=== PATIENT | male | born 1950 | race African-American/Black ===

== ENCOUNTER 2019-10-13 20:06 | Emergency (ER) | payer OTHER ==
[~2019-10-13] VITALS: Ht 154.9 cm; Wt 79.4 kg
[2019-10-13 21:20] LABS: HEMATOCRIT 38.4 % (42.0-52.0); HEMOGLOBIN 13.1 gm/dL (14.0-18.0); MCH 27.9 pg (26.0-34.0); MCHC 34.2 g/dL (28.0-37.0); MCV 81.7 fL (80.0-100.0); PLATELET COUNT 155 thou/uL (150-400); RBC 4.71 mil/uL (4.50-6.00); RDW 13.5 % (10.5-14.5)
[2019-10-13 21:32] LABS: CALCIUM 8.3 mg/dL (8.5-10.1); CREATININE 1.2 mg/dL (0.7-1.3); POTASSIUM 3.7 mmol/L (3.5-5.1)
[2019-10-13 21:38] LABS: ALBUMIN 3.2 g/dL (3.4-5.0); TOTAL BILIRUBIN 0.4 mg/dL (0.2-1.0); TOTAL PROTEIN 7.2 g/dL (6.4-8.2)
[2019-10-13 21:55] LABS: ABSOLUTE NEUTROPHILS 2.9 thou/uL (1.4-8.2)
[2019-10-13 21:56] LABS: ANISOCYTOSIS 1+; LARGE PLATELETS OCCASIONAL
[2019-10-14 00:09] LABS: URINE BILIRUBIN NEGATIVE (Negative); URINE BLOOD 1+ (Negative); URINE CLARITY CLEAR; URINE COLOR YELLOW; URINE GLUCOSE-RANDOM* NEGATIVE (Negative); URINE KETONES NEGATIVE (Negative); URINE LEUKOCYTES-REFLEX NEGATIVE (Negative); URINE NITRITE-REFLEX NEGATIVE (Negative); URINE PROTEIN (DIPSTICK) NEGATIVE (Negative); URINE UROBILINOGEN 0.2 E.U./dl (0.2-1.0)
[2019-10-14 00:17] LABS: MUCUS 0-3 Light strn/LPF (None Seen); SQUAMOUS None Seen /LPF (0-3); TRANSITIONAL EPITHEL CELL 0-3 Few /LPF (None Seen)
[2019-10-14 00:18] LABS: BACTERIA-REFLEX None Seen /HPF (None Seen); CELLULAR CASTS 0-3 Few /LPF (None Seen); CRYSTALS None Seen /LPF (None Seen); URINE RBC 0-2 Rare /HPF (0-2); URINE WBC-REFLEX None Seen /HPF (0-5)
[2019-10-14 01:40] VITALS: BP 116/76
== END 2019-10-14 01:41 | disposition home or self-care (01) ==
LOC: EDBD 20:06 → ER 20:06
PROVIDERS: Emergency Medicine
DX: U07.1 COVID-19 (principal); C61 Malignant neoplasm of prostate; Z88.0 Allergy status to penicillin

== ENCOUNTER 2019-10-14 12:30 | Inpatient (IN) | payer MEDICAID ==
[~2019-10-14] VITALS: Ht 175.3 cm; Wt 78.6 kg
[2019-10-14 12:41] VITALS: BP 122/70
[2019-10-14 13:42] LABS: HEMATOCRIT 38.2 % (42.0-52.0); HEMOGLOBIN 12.8 gm/dL (14.0-18.0); MCH 27.5 pg (26.0-34.0); MCHC 33.5 g/dL (28.0-37.0); MCV 82.1 fL (80.0-100.0); PLATELET COUNT 145 thou/uL (150-400); RBC 4.66 mil/uL (4.50-6.00); RDW 13.3 % (10.5-14.5); WBC 3.8 thou/uL (4.0-11.0)
[2019-10-14 14:14] LABS: ABSOLUTE NEUTROPHILS 1.9 thou/uL (1.4-8.2); ATYPICAL LYMPHS 1 %
[2019-10-14 14:15] LABS: ANISOCYTOSIS 1+; LARGE PLATELETS OCCASIONAL
[2019-10-14 14:23] LABS: POTASSIUM 3.8 mmol/L (3.5-5.1)
[2019-10-14 14:24] LABS: CALCIUM 8.3 mg/dL (8.5-10.1); CREATININE 1.3 mg/dL (0.7-1.3); TOTAL BILIRUBIN 0.4 mg/dL (0.2-1.0)
[2019-10-14 14:25] LABS: ALBUMIN 3.1 g/dL (3.4-5.0); TOTAL PROTEIN 7.1 g/dL (6.4-8.2)
[2019-10-14 17:54] VITALS: BP 103/78
[2019-10-14 17:57] LABS: D-DIMER 0.21 ug/mLFEU (0.19-0.50); FIBRINOGEN 444.1 mg/dL (210-360)
[2019-10-14 17:59] VITALS: BP 103/78
[2019-10-14 18:20] VITALS: BP 122/67
[2019-10-15 04:15] VITALS: BP 106/63
[2019-10-15 06:14] LABS: HEMATOCRIT 40.1 % (42.0-52.0); HEMOGLOBIN 13.1 gm/dL (14.0-18.0); MCH 27.6 pg (26.0-34.0); MCHC 32.6 g/dL (28.0-37.0); MCV 84.5 fL (80.0-100.0); RBC 4.74 mil/uL (4.50-6.00); RDW 13.9 % (10.5-14.5); WBC 3.1 thou/uL (4.0-11.0)
[2019-10-15 06:20] LABS: CREATININE 1.2 mg/dL (0.7-1.3); POTASSIUM 3.9 mmol/L (3.5-5.1)
--- NOTE | 2019-10-15 07:40 | EKG ---
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: MELANY : 1950 Requested By: Ana Rick Order Number: [id number] MD: Ki Montero Measurements Intervals [place] Rate: 68 P: 59 RI: 127 QRS: -13 QRSD: 110 T: 254 QT: 385 QTc: 410 Interpretive Statements Sinus rhythm with atrial premature complexes RSR' in V1 or V2, right VCD Abnrm T, consider ischemia, anterolateral lds No previous ECG available for comparison Electronically Signed On 10-15-2019 7:40:16 CDT by Ki Montero [email or web address] <ELECTRONICALLY SIGNED> By: Ki Montero MD, [facility] 10/15/19 0740 [id number] Ki Montero MD, [facility] /EPI
[2019-10-15 08:06] VITALS: BP 105/64
--- NOTE | 2019-10-15 16:03 | NUR ---
INITIAL ASSESSMENT: CHELSEA reviewed chart and spoke with nursing and attending physician. Pt was admitted from home due to pneumonia/dyspnea. Pt placed in Enhanced Isolation to r/o COVID -19. Pt is febrile and is on IV abx. CHELSEA spoke with pt via phone. Introduced role of CHELSEA. Pt is alert/orientated. States he lives at home with his family. Prior to admission, pt was independent with ADLS. No use of DME. Pt states he has not had HH services or been to post-acute care. Pt does not have a PCP. Pt states he has Medicare. CHELSEA confirmed pt's social security number on face sheet. CHELSEA updated UR RN. CHELSEA is following to assist as needed with discharge planning.
--- NOTE | 2019-10-15 18:37 | NUR ---
ASSUMED PATIENT CARE AT 0700. A/0 X4. AFEBRILE. 2ND COVID TEST POSITIVE. AMBULATED IN ROOM. NO SOB. SLOWLY TOWARDS POC GOALS.
[2019-10-15 19:53] VITALS: BP 112/63
--- NOTE | 2019-10-15 20:16 | NUR ---
PT RESTING IN BED WATCHING TV AND TALKING ON PHONE. PT DENIES SOA OR DISCOMFORT. PT HAS TOWEL OVER HIS HEAD. GOOD EYE CONTACT, BLUNTED AFFECT. LUNGS DIMINISHED. PT REMAINS INDEPENDENT WITH ADLS. PT REQUESTED SNACK AND WILL BE PROVIDED.
--- NOTE | 2019-10-16 05:03 | NUR ---
AM O2 SAT R/A 85% PT REPORTED SOA. O2 2L 88, 3L 91. TEMP ELEVATED AND PRN TYLENOL PROVIDED. NURSES' ASSOCIATION COUNSELOR, RESPIRATORY THERAPIST AND CHARGE NURSE UPDATED.
[2019-10-16 05:04] VITALS: BP 107/66
[2019-10-16 08:12] LABS: HEMOGLOBIN 11.9 gm/dL (14.0-18.0); MCH 27.3 pg (26.0-34.0); MCV 82.9 fL (80.0-100.0); RBC 4.34 mil/uL (4.50-6.00); RDW 13.7 % (10.5-14.5); WBC 9.4 thou/uL (4.0-11.0)
[2019-10-16 08:19] LABS: CALCIUM 8.2 mg/dL (8.5-10.1); POTASSIUM 3.7 mmol/L (3.5-5.1)
[2019-10-16 08:41] LABS: D-DIMER 0.19 ug/mLFEU (0.19-0.50)
[2019-10-16 11:09] LABS: ALBUMIN 2.6 g/dL (3.4-5.0); DIRECT BILIRUBIN < 0.1 mg/dL (<0.1-0.2); SGOT 29 U/L (15-37); SGPT 19 U/L (30-65); TOTAL BILIRUBIN 0.3 mg/dL (0.2-1.0); TOTAL PROTEIN 6.4 g/dL (6.4-8.2)
--- NOTE | 2019-10-16 14:13 | NUR ---
CHELSEA reviewed chart and spoke with nursing. Pt remains in Enhanced Isolation due to COVID-19. Pt is febrile and requiring O2. ID consult ordered. Patient Access is unable to verify pt's Medicaid with listed social security number. Pt not answering his phone in his room. CHELSEA is following to assist as needed with discharge planning.
--- NOTE | 2019-10-16 17:04 | NUR ---
08:00-ASSESSED PT. HE IS FAIRLY LETHARGIC OVERALL, FLAT AFFECT. RESPONDS APPROPRIATLEY. ON 3L NC AND SATURATIONS ARE RUNNING 92-94%, NON -LABORED BREATHING. DENIES ANY CHEST PAIN, NO SOB. IV HAS INFILTRATED SO WILL GET A NEW ONE TODAY FOR MEDICATIONS TO BE GIVEN IV.
--- NOTE | 2019-10-16 17:08 | NUR ---
10:00 22 GUAGE INSERTED INTO RIGHT ANTECUBATAL PT. SAID HE IS A "HARD STICK AND THEY HAVE TROUBLE GETTING IV'S ON HIM". BLOOD RETURN OBTAINED AND FLUSHES EASILY. MULTIPLE IV MEDICATIONS GIVEN TODAY AHEAD. APPEARS TO HAVE "CHILLS"- BUT ORAL TEMP IS STILL ONLY 99.7
--- NOTE | 2019-10-16 17:11 | NUR ---
12:30- CHANGED OUT ALL BED LINENS, PT. WASHED UP ON HIS OWN IN THE BATHROOM. HE GOT BACK TO BED AND WAS STRUGGLING FOR AIR, PLACED HIM VALENTE BACK ON NASAL CANNULA AND HIS SATURATIONS IMPROVED UP TO 94% ONCE HE SETTLED DOWN AND CALMED HIS BREATHING RATE DOWN.
--- NOTE | 2019-10-16 17:13 | NUR ---
15:30- PT. RESTING EYES CLOSED, STATED NAUSEA POST ZOFRAN HAS IMPROVED " A LITTLE BIT NOW". HAS C/O ABDOMEN PAIN AND NAUSEA ALL DAY TODAY ON AND OFF HIS PREDOMINANT SYMPTOM OVERALL. HAD SMALL AMOUNT OF DIARRHEA POST ANTIBIOTOCS.
--- NOTE | 2019-10-16 17:14 | NUR ---
IV INFUSION'S CONTINUE THROUGHOUT THE DAY. RESTING WITH HIS EYES CLOSED, TOLD ME HE FELT "COLD"- AND ROOM FEELS VERY WARM AT 80 DEGRESS TO ME. DENIES ANY SOB. CALL LIGHT WITHIN REACH, WILL CONTINUE TO MONITOR CLOSELY.
--- NOTE | 2019-10-16 19:53 | NUR ---
PT RESTING IN BED. O2 ROOM AIR SAT 77%. PT EDUCATED HE NEEDS TO KEEP O2 ON, 3L NC RETURNED AND O2 SAT ONLY UP TO 88%. 4L PT SAT 91%. PT EDUCATED AGAIN FOR NEED TO LEAVE O2 ON. TEMP 99.2 AND PT PROVIDED PRN TYLENOL. PT REPORTED FEELING TIRED AND NOT SLEEPING WELL. PT ASKED FOR FOOD AND TALKING ON PHONE WITH HIS SISTER. LUNGS EXP GRUNT. RESPIRATORY AND PROVIDER UPDATED. CHARGE NURSE UPDATED.
[2019-10-16 21:01] LABS: URINE BILIRUBIN NEGATIVE (Negative); URINE BLOOD 1+ (Negative); URINE CLARITY CLEAR; URINE COLOR YELLOW; URINE GLUCOSE-RANDOM* NEGATIVE (Negative); URINE KETONES NEGATIVE (Negative); URINE LEUKOCYTES-REFLEX NEGATIVE (Negative); URINE NITRITE-REFLEX NEGATIVE (Negative); URINE PROTEIN (DIPSTICK) 1+ (Negative); URINE UROBILINOGEN 0.2 E.U./dl (0.2-1.0)
[2019-10-16 21:30] VITALS: BP 114/59
[2019-10-16 21:50] LABS: BACTERIA-REFLEX 1-9 Few /HPF (None Seen); CASTS None Seen /LPF (None Seen); CRYSTALS None Seen /LPF (None Seen); MUCUS 0-3 Light strn/LPF (None Seen); SQUAMOUS 0-3 Few /LPF (0-3); URINE RBC 3-10 Few /HPF (0-2); URINE WBC-REFLEX 0-5 Rare /HPF (0-5)
[2019-10-16 21:52] LABS: BE(vivo) -0.1 mmol/L (-2 to +3); HCO3 23.7 mmol/L (22.0-26.0); PCO2 35.8 mmHg (35.0-45.0); PO2 61.8 mmHg (80.0-100.0); pH 7.439 (7.360-7.450); sO2 92.6 % (92.0-98.0)
--- NOTE | 2019-10-16 22:01 | NUR ---
TALKED WITH ID REGARDING PTS CHANGE IN CONDITION. TALKED WITH PT ABOUT CONVALESCENT PLASMA AND ORDERED TYPE AND SCREEN. 93% ON 6L. CHARGE NURSE, TEACHING DIETITIAN AND HAND SALTER PROVIDER UPDATED RE CONVERSATION WITH ID DR. DAHL AND RESPIRATORY COMMUNICATED RE HIGH FLOW O2 CANNULA. RESPIRATORY DID OBTAIN ABG AFTER BEING UPDATED ON NURSING SUPERVISORS CONVERSATION WITH FLOOR NURSE. PT HAS INFORMATION HAND OUT ON PLASMA TREATMENT AND IS REVIEWING. BLOOD TYPE WILL BE CALLED TO ID
--- NOTE | 2019-10-16 22:28 | NUR ---
PT MORE ALERT GOOD EYE CONTACT WHEN INTERACTING WITH STAFF AND SMILING. PT VERBALIZED FEELING BETTER WITH INCREASE IN O2 PER NC. BED ALARM ON.
--- NOTE | 2019-10-16 23:18 | NUR ---
PT BLOOD TYPE CALLED TO ID PER HIS REQUEST.
[2019-10-17] VITALS (15 sets, daily range): BP systolic 100–126; BP diastolic 54–67
[2019-10-17 06:02] LABS: HEMATOCRIT 36.4 % (42.0-52.0); HEMOGLOBIN 11.9 gm/dL (14.0-18.0); MCHC 32.8 g/dL (28.0-37.0); MCV 82.4 fL (80.0-100.0); RBC 4.41 mil/uL (4.50-6.00); RDW 13.8 % (10.5-14.5); WBC 10.1 thou/uL (4.0-11.0)
--- NOTE | 2019-10-17 10:04 | NUR ---
ASSUMED CARE AT 0700. PT SLEEPING, NO COMPLAINTS. NO PAIN. VSS, 6L O2 HIGH FLOW NC SATING 87-89%. NO INCREASED WORK OF BREATHING, LUNG SOUNDS DIMINISHED. POOR PO DUE TO DYSPNEA/WEAKNESS. PIV WITHOUT ISSUES. FALL PRECAUTIONS IN PLACE AND URINAL AND BSC AT BEDSIDE. EDUCATED PT ON CALLING WHEN NEEDS ARISE. CALL LIGHT IN PLACE 0915- PT UP TO BSC. AFTER BACK TO BED, O2 SATS 86% AND RR 24-28. AFTER 10 MIN OF RECOVERING, STILL SATS 86% AND INCREASED WORK OF BREATHING. INCREASE O2 TO 10L. NOTIFY , ORDERS RECIEVED, WILL CONTINUE TO MONITOR
[2019-10-17 11:19] LABS: ALBUMIN 2.4 g/dL (3.4-5.0); ANION GAP 6 mmol/L (7-16); BUN 16 mg/dL (7-18); CALCIUM 8.3 mg/dL (8.5-10.1); CHLORIDE 104 mmol/L (98-107); CO2 28 mmol/L (21-32); CREATININE 0.9 mg/dL (0.7-1.3); DIRECT BILIRUBIN < 0.1 mg/dL (<0.1-0.2); GLUCOSE 141 mg/dL (74-106); SGOT 28 U/L (15-37); SGPT 20 U/L (30-65); SODIUM 138 mmol/L (136-145); TOTAL BILIRUBIN 0.3 mg/dL (0.2-1.0); TOTAL PROTEIN 6.3 g/dL (6.4-8.2)
[2019-10-17 12:40] LABS: HCO3 24.7 mmol/L (22.0-26.0); PCO2 36.4 mmHg (35.0-45.0); PO2 57.3 mmHg (80.0-100.0); pH 7.449 (7.360-7.450); sO2 91.2 % (92.0-98.0)
--- NOTE | 2019-10-17 12:55 | NUR ---
ARRIVED IN ICU FROM 3W AROUND NOON ACCOMPANIED BY RN AND TECH. ABLE TO AMBULATE FEW STEPS TO THE BED. ALERT AND ORIENTED AND DENIES PAIN. ON THE MONITOR IRREGULAR HEART BEAT AND TACHYPNIC. ON 10L HF CANNULA AND SATS AROUND 90-91%. PER DR JOHNSON PATIENT MAY BE PLACED ON BIPAP IF NEEDED. SCDs PLACED ON BLE AND URINAL PROVIDED. ON VEGETERIAN DIET AND TOLERATING WELL. DENIES ANY CONCERNS AT THIS TIME BUT WOULD LIKE A SOCIAL MEDIA DESIGNER FOR HIS CELL PHONE, ADVICED TO CALL FAMILY MEMBER TO DROP IT OFF AT THE ED ENTRANCE. WILL CONTINUE TO MONITOR CLOSELY.
--- NOTE | 2019-10-17 15:58 | NUR ---
SW reviewed chart and spoke with nursing. Pt remains in Enhanced Isolation due to COVID-19. Pt had change in status and requiring 10L of O2. Pt transferred to ICU earlier today. No weekend discharge planning. Med Assist is working to see if pt has active Medicare coverage. CHELSEA is following to assist as needed with discharge planning.
--- NOTE | 2019-10-17 16:44 | NUR ---
PATIENT GOT UP TO THE BATHROOM WITH STANDBY ASSISTANCE, WHEN HE GOT BACK IN BED HIS O2 SATS DROPPED TO 83% AND WASN'T ABLE TO RECOVER QUICKLY SO RT WAS NOTIFIED AND PATIENT PLACED ON OPTIFLOW.
--- NOTE | 2019-10-17 18:10 | NUR ---
PATIENT TOLERATING OPTIFLOW WELL AND O2 SATS UP TO 95%
[2019-10-18] VITALS (22 sets, daily range): BP systolic 97–136; BP diastolic 61–79
[2019-10-18 04:59] LABS: HEMOGLOBIN 11.9 gm/dL (14.0-18.0); MCH 26.9 pg (26.0-34.0); MCHC 32.2 g/dL (28.0-37.0); MCV 83.4 fL (80.0-100.0); RBC 4.44 mil/uL (4.50-6.00); RDW 13.8 % (10.5-14.5); WBC 9.5 thou/uL (4.0-11.0)
[2019-10-18 05:09] LABS: BE(vivo) 0.1 mmol/L (-2 to +3); HCO3 24.1 mmol/L (22.0-26.0); PCO2 37.1 mmHg (35.0-45.0); pH 7.431 (7.360-7.450); sO2 93.1 % (92.0-98.0)
[2019-10-18 05:10] LABS: CREATININE 0.9 mg/dL (0.7-1.3)
[2019-10-18 14:07] LABS: BE(vivo) 1.6 mmol/L (-2 to +3); HCO3 23.4 mmol/L (22.0-26.0); PCO2 28.6 mmHg (35.0-45.0); sO2 99.5 % (92.0-98.0)
--- NOTE | 2019-10-18 16:27 | NUR ---
VAT CONSULTED FOR A CL FOR THIS PT IN ICU, COVID+. 5FRTL PLACED IN RT IJ, TIP AT THE CAJ, PLEASE SEE NI FOR DETAILS
--- NOTE | 2019-10-18 19:29 | NUR ---
PT ALERT AND ORIENTED TIMES FOUR THE MORNING. VSS, HIGH FLOW O2 AT 65%. PT DENIES PAIN. TOLERATES MEDS AND BREAKFAST. VOIDS PER URINAL.
[2019-10-19] VITALS (28 sets, daily range): BP systolic 100–145; BP diastolic 64–85
[2019-10-19 04:29] LABS: BE(vivo) -2.2 mmol/L (-2 to +3); HCO3 22.3 mmol/L (22.0-26.0); PCO2 37.1 mmHg (35.0-45.0); PO2 77.3 mmHg (80.0-100.0); pH 7.396 (7.360-7.450); sO2 95.5 % (92.0-98.0)
[2019-10-19 05:45] LABS: HEMATOCRIT 38.9 % (42.0-52.0); HEMOGLOBIN 12.5 gm/dL (14.0-18.0); MCH 26.8 pg (26.0-34.0); MCHC 32.1 g/dL (28.0-37.0); MCV 83.5 fL (80.0-100.0); RBC 4.66 mil/uL (4.50-6.00); RDW 13.9 % (10.5-14.5)
[2019-10-19 05:58] LABS: CALCIUM 7.7 mg/dL (8.5-10.1); CREATININE 0.8 mg/dL (0.7-1.3); POTASSIUM 3.8 mmol/L (3.5-5.1)
--- NOTE | 2019-10-19 16:26 | NUR ---
PT WAS PRONED AT 1430 WITH HELP FROM 4 NURSES AND 1 RT. O2 SATS BEFORE PRONING WERE 95% ON 40% FIO2 VENTED AND NOW IS 98% ON 40% FIO2 VENTED. RT HAS DECREASED PEEP FROM [address] ORDER[address] PRIOR TO PRONING PT WAS BEING TURNED Q2 HOURS. SKIN INTACT. PT REMAINS SEDATED BUT ON SEDATION VACATION PT DOES OPEN EYES TO COMMAND AND SQUEEZES HANDS. PT HAS NEW ORDER TO START TUBE FEEDING. FEEDING WILL START ONCE PT IS NO LONGER PRONED. HR REMAINS LOW 40'S-50'S.
--- NOTE | 2019-10-19 17:27 | NUR ---
PT'S DAUGHTER BEAU CALLED AND RN GAVE PT UPDATE TO HER.
--- NOTE | 2019-10-19 21:40 | NUR ---
SPOKE WITH SUKHDEV REGARDING PATIENTS CENTRAL LINE CODITION. THE LINE WAS SOAKED IN RED DRAINAHE AT FIRST ENCOUNTER WITH PATIENT THIS SHIFT. AMOUNT OF RED DRAINAGE WAS MORE THAN EXPECTED UNDER HIM. CENTRAL LINE TRIPLE LUMEN FLUSHES AND DRAWS BACK BLOOD. IT MAY BE PULLED BACK MORE THAN ORIGIANLLY PLACED. I HAVE SALINE LOCKED IT OFF AND HOLDING OFF ON USING IT AT THIS TIME. RECIEVED THE OK TO HOLD OFF ON EVALUATING HIS LINE PLACEMENT IN THE MORNING WITH HIS MORNING CHEST XRAY. I SUGGESTED COAG STUDY TO BE DRAWN AND THE ORDERS FOR THIS WILL BE PLACED IF SUKHDEV SEES A NEED. SHE IS EVALUATING HIS CHART.
--- NOTE | 2019-10-19 22:34 | NUR ---
CENTRAL LINE AT THIS TIME NO MORE DRAINAGE. SALINE LOCKED OFF. NO OTHER RED DRAINAGE NOTED FROM ANY OTHER AREA OF BODY.
[2019-10-20] VITALS (47 sets, daily range): BP systolic 87–153; BP diastolic 54–89
[2019-10-20 06:11] LABS: INR 2.1; PROTIME 21.4 Seconds (9.3-11.4)
[2019-10-20 06:24] LABS: D-DIMER 0.38 ug/mLFEU (0.19-0.50)
[2019-10-20 06:28] LABS: CALCIUM 7.5 mg/dL (8.5-10.1); CREATININE 0.8 mg/dL (0.7-1.3); POTASSIUM 3.5 mmol/L (3.5-5.1)
--- NOTE | 2019-10-20 06:34 | NUR ---
CENTRAL LINE CONTINUES TO HAVE RED DRAINAGE THIS MORNING. HELD PRESSURE AND REDRESSED. NO SIGNS OF PAIN. BLOD PRESSURE STABLE. CAREPLAN REVIEWED.
--- NOTE | 2019-10-20 09:12 | NUR ---
RD TUBE FEEDING RECOMMENDATIONS: 1) REC changing to Vital AF 1.2 formula in vented pt to reduce fiber load and significantly lower CHO intake given BG elevations > 260 mg/dl on steroids. Vital AF 1.2 provides 105 g fewer CHO per every 1 L. Goal Rate on Vital AF 1.2 if proned ~4 hrs/day = 80 ml/hr. Goal Rate if TFs off 8+ hrs/day for proning = at least 90 ml/hr. 2) If Jevity 1.5 desired EN formula to continue, REC goal rate of 70 ml/hr if TFs off for 4 hrs/day for proning vs 85 ml/hr goal rate if proned 8 hrs/day. 3) REC standard water flushes of 30 ml q 4 hrs, 30 ml before/after meds while IVFs continue.
[2019-10-20 09:57] LABS: ALBUMIN 1.9 g/dL (3.4-5.0); DIRECT BILIRUBIN < 0.1 mg/dL (<0.1-0.2); SGOT 24 U/L (15-37); SGPT 27 U/L (30-65); TOTAL BILIRUBIN 0.4 mg/dL (0.2-1.0); TOTAL PROTEIN 5.3 g/dL (6.4-8.2)
--- NOTE | 2019-10-20 11:30 | NUR ---
IV therapist here to insert central line. Telephone consent was obtained from pt's daughter.
--- NOTE | 2019-10-20 15:17 | NUR ---
CONSULTED TO REPLACE THE RIGHT IJ CENTRAL LINE THAT WAS ACCIDENTLY REMOVED DURING PRONE POSITION PM. PRESSURE DRESSING NOTED TO THE RIGHT NECK. NEW ORDER AND CONSENT OBTAINED BY THE EMPLOYMENT TRAINING SPECIALIST. A LEFT CENTRAL LINE PLACED PER POLICY AFTER A BEDSIDE TIMEOUT WAS COMPLETED. THE CENTRAL LINE WAS 25CM AND ONLY REACH THE TIP OF THE SVC. A OTW PROCEDURE WAS DONE WITH A 30CM CENTRAL LINE- THE 2ND CHEST XRAY CONFIRMED LINE IN GOOD POSITION FOR USE
--- NOTE | 2019-10-20 16:03 | NUR ---
Right IJ site (from previous central line) continues to ooze blood. Pressure has been applied intermittently today followed by pressure dressings but site continues to have steady ooze. Dr Loredo here approximately [address] Clark also paged and informed. Order received to apply Surgicel to get hemostasis. Call placed to surgery and member of OR Team brought over a pkg of Surgicel. Small piece applied to the left jugular site and a pressure dressing placed. Pt remains hypothermic despite heating blanket applied this morning arond 1030.
--- NOTE | 2019-10-20 18:40 | NUR ---
New pressure drsg applied to right IJ site. New strip of Surgicel also applied. Continues to have slow ooze. Tube feedings initiated today following KUB for placement of tube. Maintained in COVID precautions. Report given to RN assuming care. Daughter called back for status update.
--- NOTE | 2019-10-20 20:00 | NUR ---
Daughter requesting to have pt's sister added to the contact list. Sister is Jerri Maddox -[phone].
[2019-10-21] VITALS (56 sets, daily range): BP systolic 72–128; BP diastolic 38–77
--- NOTE | 2019-10-21 00:55 | NUR ---
RT SITE WHERE THE IJ WAS REMOVED ON 10/19 CONTINUES TO OOZE RED DRAINAGE.
--- NOTE | 2019-10-21 02:10 | NUR ---
pt blood pressure low at this time. 72/38, he is very sedated, unable to open eyes wide enough for him to view pupils. turned off the versed for now.
[2019-10-21 04:39] LABS: BE(vivo) 1.1 mmol/L (-2 to +3); HCO3 24.4 mmol/L (22.0-26.0); PCO2 34.5 mmHg (35.0-45.0); PO2 57.6 mmHg (80.0-100.0); pH 7.468 (7.360-7.450); sO2 91.8 % (92.0-98.0)
[2019-10-21 06:04] LABS: HEMATOCRIT 35.8 % (42.0-52.0); HEMOGLOBIN 11.6 gm/dL (14.0-18.0); MCH 26.8 pg (26.0-34.0); MCHC 32.4 g/dL (28.0-37.0); MCV 82.8 fL (80.0-100.0); PLATELET COUNT 319 thou/uL (150-400); RBC 4.32 mil/uL (4.50-6.00); RDW 13.7 % (10.5-14.5); WBC 9.5 thou/uL (4.0-11.0)
[2019-10-21 06:18] LABS: CALCIUM 7.4 mg/dL (8.5-10.1); CREATININE 0.9 mg/dL (0.7-1.3); POTASSIUM 3.2 mmol/L (3.5-5.1); TOTAL BILIRUBIN 0.3 mg/dL (0.2-1.0); TOTAL PROTEIN 5.4 g/dL (6.4-8.2)
[2019-10-21 12:27] LABS: ABSOLUTE NEUTROPHILS 7.3 thou/uL (1.4-8.2); PLATELET ESTIMATE NORMAL
--- NOTE | 2019-10-21 18:35 | NUR ---
UPDATE GIVEN TO DAUGHTER BEAU, DISCUSSED STABLE VITAL SIGNS-CHEST XRAY WORSENING-INCREASED VENT SETTINGS. ASSURED WILLIAMS HE WAS NOT IN PAIN AND COMFORTABLE POSSIBLE. SHE IS VERY CONCERNED. ALSO SPOKE WITH AGUSTO [id number] WANTED TO ADD ERIKA TO THE LIST BUT DID NOT WANT TO REMOVE SON RYNE. INFORMED DAUGHTER THAT ONLY TWO PEOPLE COULD BE ON THE AUTHORIZED CONTACTS. SHE WAS OKAY WITH POLICY. DRESSING ON RIGHT SIDE NECK CHANGED-COMPLETELY SATURATED WITH DARK BLACK BLOOD. NEW DRESSING C/D/I, NO ISSUES OR CONCERNS.
[2019-10-22] VITALS (37 sets, daily range): BP systolic 94–152; BP diastolic 56–91
--- NOTE | 2019-10-22 09:45 | NUR ---
BEAU, DAUGHTER CALLED TO INQUIRE REGARDING PT STATUS, UPDATED RELATED TO BEING ON VENT, CPAP TRIAL TO WORK TOWARD GETTING OFF VENT IF HE IS ABLE TO TOLERATE, SEDATION MEDS, NUTRITION PER TUBE FEEDING. QUESTIONS ANSWERED TO SATISFACTION.
[2019-10-22 10:23] LABS: HCO3 25.5 mmol/L (22.0-26.0); PCO2 40.2 mmHg (35.0-45.0); PO2 58.4 mmHg (80.0-100.0); sO2 90.9 % (92.0-98.0)
--- NOTE | 2019-10-22 20:09 | NUR ---
PATIENTS CARES WERE ASSUMED AT SHIFT CHANGE ON 10/20. PATIENT WAS ASSESSED AND MEDS WERE PASSED. PATIENTS DRIPPS WERE MAINTAINED. PATIENT WAS TURNED APPROX Q3 HOURS AND PAUSSED FROM 0100 TO 0500 TO PROMOTE BETTER REST.VS RECORED ONE THE HOUR. TOTLE VOLUME OUT 600 PATIENT CERON IS PATENT. HEAD OF BED UP 30 DEGREES.
[2019-10-23] VITALS (36 sets, daily range): BP systolic 92–147; BP diastolic 53–80
[2019-10-23 04:49] LABS: BE(vivo) 1.5 mmol/L (-2 to +3); PCO2 40.6 mmHg (35.0-45.0); PO2 70.4 mmHg (80.0-100.0); pH 7.424 (7.360-7.450); sO2 94.5 % (92.0-98.0)
[2019-10-23 05:15] LABS: HEMATOCRIT 34.2 % (42.0-52.0); HEMOGLOBIN 11.1 gm/dL (14.0-18.0); MCHC 32.5 g/dL (28.0-37.0); MCV 83.2 fL (80.0-100.0); PLATELET COUNT 316 thou/uL (150-400); RBC 4.12 mil/uL (4.50-6.00); RDW 14.4 % (10.5-14.5); WBC 13.8 thou/uL (4.0-11.0)
[2019-10-23 05:56] LABS: CALCIUM 7.8 mg/dL (8.5-10.1); CREATININE 0.8 mg/dL (0.7-1.3); POTASSIUM 3.6 mmol/L (3.5-5.1); TOTAL BILIRUBIN 0.3 mg/dL (0.2-1.0); TOTAL PROTEIN 5.5 g/dL (6.4-8.2)
--- NOTE | 2019-10-23 07:20 | NUR ---
ASSESSMENT DOCUMENTED.PT BEEN RESTING IN NO ACUTE DISTRESS.REMAINS ON VENT AND SEDATED.DOES NOT FOLLOW COMMANDS.ON PROPOFOL AND VERSED,TITRATED TOLERATED.IVF INFUSING.CERON DD LARGE AMOUNT URINE.TOLERATING TUBE FEEDING..ETT AND OGT IN PLACE.NO SIGNIFICANT CHANGES NOTED AT THIS TIME.WILL CONT TO MONITOR PER POC.
[2019-10-23 09:37] LABS: BE(vivo) 1.8 mmol/L (-2 to +3); PCO2 39.2 mmHg (35.0-45.0); PO2 54.9 mmHg (80.0-100.0); pH 7.439 (7.360-7.450); sO2 89.7 % (92.0-98.0)
--- NOTE | 2019-10-23 09:39 | NUR ---
New tube feed recs due to hyperglycemia: change formula to vital AF 1.2 at 60ml/hr. Increase to 70ml/hr if propofol discontinued Triglycerides up to 563, address propofol Start water flushes once IVF are discontinued
--- NOTE | 2019-10-23 10:09 | NUR ---
CPAP TRAIL DONE THIS AM- PATIENT LASTED TO HOURS, SEE POST ABG. CRITICAL PO2. INCREASED FIO2 FROM [address] ABURTO NOTIFIED OF CRITICAL RESULTS. REMAINS SEDATED ON THE VENT. ALL VITAL SIGNS STABLE, AFEBRILE.
[2019-10-23 12:20] LABS: PLATELET ESTIMATE NORMAL
--- NOTE | 2019-10-23 15:25 | NUR ---
unable to visit with pt rt remains on vent with tube feed for nutitional support. lives with his daughter and son. unable to reach his son or daughter via phone. aleja is + for jeff.
--- NOTE | 2019-10-23 18:43 | NUR ---
PROPOFOL GTT DISCONTINUED. ORDERS TO WEEN OF VERSED AND INITIATE FENTANYL AND PRECEDEX GTT. WAITING FOR PHARAMACY TO SEND, WILL HAVE NIGHT RN START GTTS.
[2019-10-24] VITALS (48 sets, daily range): BP systolic 91–163; BP diastolic 54–92
--- NOTE | 2019-10-24 04:06 | NUR ---
ASSUMED CARE 1899. ASSESSMENT DOCUMENTE. PT SEDATED. NOT FOLLOWING COMMANDS BUT PUPILS REACTIVE. PT SEEM COMFORTABLE. PT DOING FINE ON CPAP MAINTAINING SATS >95. NO DISTRESS. PATIENT SWITCHED FROM VERSED GTT TO FENTANYL AND PRECEDEX GTT. FENTANYL CURRENTLY AT 50MCG/HR, PRECEDEX AT 0.4 MCG/HR. WILL CONTINUE TO TITRATE PER PATIENTS COMFORT. NO OTHER CONCERNS. PT PROGRESSING TOWARDS GOAL.
[2019-10-24 05:05] LABS: BE(vivo) -0.3 mmol/L (-2 to +3); HCO3 24.8 mmol/L (22.0-26.0); PCO2 42.2 mmHg (35.0-45.0); PO2 64.1 mmHg (80.0-100.0); pH 7.387 (7.360-7.450); sO2 92.2 % (92.0-98.0)
[2019-10-24 05:21] LABS: HEMOGLOBIN 10.9 gm/dL (14.0-18.0); MCH 26.9 pg (26.0-34.0); MCHC 32.1 g/dL (28.0-37.0); MCV 83.8 fL (80.0-100.0); PLATELET COUNT 309 thou/uL (150-400); RBC 4.05 mil/uL (4.50-6.00); RDW 13.9 % (10.5-14.5)
[2019-10-24 06:48] LABS: CALCIUM 7.7 mg/dL (8.5-10.1); CREATININE 0.8 mg/dL (0.7-1.3); POTASSIUM 3.9 mmol/L (3.5-5.1); TOTAL BILIRUBIN 0.3 mg/dL (0.2-1.0); TOTAL PROTEIN 5.6 g/dL (6.4-8.2)
--- NOTE | 2019-10-24 13:53 | NUR ---
chart review. pt remains on vent and has tube feeding for nutritional support. cpap trials. iv gtts. no anticpated dc through weekend. will cont following as needed for dc needs.
[2019-10-24 14:39] LABS: ABSOLUTE NEUTROPHILS 10.4 thou/uL (1.4-8.2)
[2019-10-24 14:40] LABS: ANISOCYTOSIS 1+; LARGE PLATELETS OCCASIONAL; POLYCHROMASIA OCCASIONAL
--- NOTE | 2019-10-24 18:29 | NUR ---
ASSESSMENTS AND INTERVENTIONS DOCCUMENTED. PATIENT REMIANS INTUBATED AND ON THE VENTILATOR. PATIENT REMAINS ON CPAP MODE THROUGH OUT SHIFT. DR. ABURTO NOT READY TO EXTUBATE BECAUSE NEGATIVE PRESSURE ROOM IS NEEDED. PATIENT IS PROGRESSING TOWARDS GOALS AT THIS TIME EVIDENCE BY REMIANING CPAP MODE THROUGH OUT THE SHIFT.
[2019-10-25] VITALS (46 sets, daily range): BP systolic 90–158; BP diastolic 54–90
[2019-10-25 05:03] LABS: BE(vivo) 4.3 mmol/L (-2 to +3); HCO3 29.2 mmol/L (22.0-26.0); PCO2 45.1 mmHg (35.0-45.0); PO2 63.4 mmHg (80.0-100.0); pH 7.429 (7.360-7.450); sO2 92.7 % (92.0-98.0)
[2019-10-25 05:38] LABS: HEMATOCRIT 33.6 % (42.0-52.0); MCH 27.2 pg (26.0-34.0); MCHC 32.6 g/dL (28.0-37.0); MCV 83.3 fL (80.0-100.0); PLATELET COUNT 276 thou/uL (150-400); RBC 4.04 mil/uL (4.50-6.00); RDW 13.8 % (10.5-14.5); WBC 13.7 thou/uL (4.0-11.0)
--- NOTE | 2019-10-25 08:29 | NUR ---
ASSUMED PT CARE AT THE CHANGE OF SHIFT, PT IS MILDLY SEDATED AND CAN FOLLOW COMMANDS, SR/SA ON THE MONITOR, REMAINS ON RESTRAINS, ASESSMENTS CHARTED, VERSED GIVEN PRN, MEDICATION GIVEN ORDERED, REMAINS ON TUBE FEEDING, NO RESIDUAL, ABDOMEN DISTENDED WITH HYPOACTIVE BOWEL SOUNDS, REMAINED STABLE OVERNIGHT, PASSED ON REPOART TO DAY NURSE
[2019-10-25 11:37] LABS: ABSOLUTE NEUTROPHILS 12.5 thou/uL (1.4-8.2)
--- NOTE | 2019-10-25 18:12 | NUR ---
RECEIVED PT'S CARE AROUND 724; PT. ON BED; ENTUBATED; RESTLESS; TRYING TO REACH ET WHILE RECEIVING REPORT; PRN VERSET GIVEN BY NIGHT NURSE; DURING AM ASSESSMENT PT. ON DEEP SEDATION; REACT TO PAIN; AM MEDICATIONS GIVEN; FEEDING RUNNING AT 60 ML/H TOGETHER WITH FLUIDS AT 125 ML/H; DR. ABURTO NOTIFIED; ORDERS RECEIVED; RESIDUAL 3 ML; AROUND NOON PT. LIGHT SEDATED; HAD SMALL BM; SOFT; FORM; REPLACED INSULIN; DURING THE AFTERNOON RESTLESS; TRYING TO REACH CERON & ET; RE-ORIENTED; REMAINED OF THE NEED OF ET; PRN VERSET GIVEN; RE-ASSESSMENT PT. ON LIGHT SEDATION; FEEDING RESIDUAL 300 ML; PHYSICIAN NOTIFIED; FEEDING STOPPED; RE-ASSESSMENT AFTER TWO HOURS; 300 ML OBTAINED; PHYSICIAN NOTIFIED; ORDERS RECEIVED; FEEDING ON HOLD; SR ON THE MONITOR; ASSESSMENT CHARGED; FOLLOWING POC; WILL PASS ON REPORT;
[2019-10-26] VITALS (32 sets, daily range): BP systolic 84–178; BP diastolic 44–102
--- NOTE | 2019-10-26 19:12 | NUR ---
ASSESSMENT CHARTED. PT INTUBATED. RESTLESS PRN [place] GIVEN. HAD LOW BP THIS SHIFT. DR. ABURTO NOTIFIED. ORDERS RECEIVED. ON SOFT WRIST RESTRAINS. COVID ISOLATION MAINTAINED. REPORT PASS ON TO THE NIGHT NURSE.
[2019-10-27] VITALS (37 sets, daily range): BP systolic 75–153; BP diastolic 47–96
--- NOTE | 2019-10-27 06:00 | NUR ---
REMAINS INTUBATED ANSD SEDATED. RESTRAINED. VERY RESTLESS AT TIMES PT ATTEMPTED TO PULL OUT ET TUBE. 600 CC UO THUIS SHIFT. WILL CONT TO MONITOR.
--- NOTE | 2019-10-27 10:05 | NUR ---
chart review. pt remains intubated with tube feeding for nutritional support. possible cpap trials today. will cont following as needed for dc needs.
[2019-10-28] VITALS (30 sets, daily range): BP systolic 70–170; BP diastolic 43–118
--- NOTE | 2019-10-28 06:00 | NUR ---
REMAINS INTUBATED AND SEDATED WITH FENTANYL AND PROPOFOL. BECOMES EXTREMELY RESTLESS AT TIMES. ATTEMPTS TO PULL AT ET TUBE AND THROW LEGS OVER SIDE RAIL 700 CC UO THIS SHIFT. SR TO AFIB AT TIMES. WILL CONT TO MONITOR.
--- NOTE | 2019-10-28 09:54 | NUR ---
Nutrition: When tube feeds resume, REC start at low rate 20 mL/hr and advanced as tolerated. new goal rate of tube feeds is 70 mL/hr now that propofol D/C. Consider reglan if additional issues with high residuals arise.
--- NOTE | 2019-10-28 13:28 | NUR ---
PT'S SON RYNE & LATER THIS AM DTR UPDATED VIA PHONE.--VW
[2019-10-29] VITALS (25 sets, daily range): BP systolic 78–173; BP diastolic 42–83
[2019-10-29 04:06] LABS: BE(vivo) 1.7 mmol/L (-2 to +3); HCO3 25.9 mmol/L (22.0-26.0); PCO2 39.2 mmHg (35.0-45.0); pH 7.438 (7.360-7.450); sO2 94.2 % (92.0-98.0)
[2019-10-29 06:00] LABS: BASOPHILS 1.2 % (0.0-2.0); EOSINOPHILS 1.2 % (0.0-3.0); HEMATOCRIT 29.2 % (42.0-52.0); HEMOGLOBIN 9.6 gm/dL (14.0-18.0); LYMPHOCYTES 7.7 % (24.0-44.0); MCH 27.4 pg (26.0-34.0); MCHC 32.8 g/dL (28.0-37.0); MCV 83.5 fL (80.0-100.0); MONOCYTES 9.8 % (1.0-8.0); PLATELET COUNT 263 thou/uL (150-400); POLYS 80.1 % (36.0-66.0); RBC 3.49 mil/uL (4.50-6.00); RDW 14.3 % (10.5-14.5)
[2019-10-29 06:23] LABS: ALBUMIN 1.7 g/dL (3.4-5.0); CALCIUM 7.9 mg/dL (8.5-10.1); CREATININE 0.8 mg/dL (0.7-1.3); POTASSIUM 3.5 mmol/L (3.5-5.1); TOTAL BILIRUBIN 0.8 mg/dL (0.2-1.0); TOTAL PROTEIN 5.5 g/dL (6.4-8.2)
--- NOTE | 2019-10-29 09:15 | NUR ---
NEW CERON PLACED BECAUSE PREVIOUS ONE WAS KINKED, PT PUT OUT 700ML OF DARK RED URINE; DR ABURTO AWARE. PT REAMINED STABLE OVERNIGHT, BM THIS SHIFT
[2019-10-29 12:58] LABS: BE(vivo) 1.1 mmol/L (-2 to +3); HCO3 24.8 mmol/L (22.0-26.0); PCO2 36.1 mmHg (35.0-45.0); PO2 56.5 mmHg (80.0-100.0); pH 7.454 (7.360-7.450)
--- NOTE | 2019-10-29 19:20 | NUR ---
ON THE VENT AND SEDATED, VITALS STABLE. CPAP TRIAL EARLIER TODAY, PATIENT'S HR SUSTAINED IN 150'S AND PATIENT RESTLESS. PLACED BACK ON AC MODE AND INCREASED SEDATION. OGT AND OSMANY DOCUMENTED. DAUGHTER CALLED THIS EVENING AT SHIFT CHANGE AND WAS UPDATED.
[2019-10-30] VITALS (21 sets, daily range): BP systolic 70–153; BP diastolic 49–109
--- NOTE | 2019-10-30 17:22 | NUR ---
DR. URENA ROUNDED AND STATED HE WILL PLAN TO TRACH AND PEG ON Sunday11-03-19 IF FAMILY GIVES CONSENT.
--- NOTE | 2019-10-30 19:29 | NUR ---
1120- PT WAS STARTED ON CPAP TRIAL. HR WAS IN THE 80'S AT BEGINNING OF TRIAL. PT'S HR INCREASED TO 140'S AND CPAP TRIAL WAS CANCELLED . PT WAS ON TRIAL FOR 15 MINUTES. PT WAS THEN GIVEN PRN MEDICATION FOR HR. SEE MAY. ORDER GIVEN TO CONSULT GENERAL SURGERY FOR PEG AND TRACH. DR. URENA ROUNDED AND STATED HE WILL PLAN TO PEG AND TRACH ON Sunday11/03/19.
--- NOTE | 2019-10-30 19:31 | NUR ---
DR MIMS ORDERED TUBE FEEDINGS TO RESUME TODAY. DUE TO NO FEEDING PUMPS BEING AVAILABLE, DR MIMS WAS CALLED AND HE CHANGED ORDER FROM 15 ML/HR JEVITY TO 200 ML Q 6 HRS BOLUS FEEDING. FIRST FEEDING GIVEN AT 1800. TUBE FLUSHED WITH 60 ML H20 AFTER TUBE FEEDING. PT TOLERATED WELL. TUBE CLAMPED AFTER FEEDING AND FLUSH. NEXT FEEDING DUE IN HOURS. REPORT GIVEN TO NIGHT RN.
--- NOTE | 2019-10-30 22:16 | NUR ---
SEDATION VACATION FOR 12 MINUTES; FROM PROPOFOL AND FENTANYL GTT. PT SPONTANEOUSLY OPEN EYES, FOLLOWS COMMANDS; HE SQUEZES BOTH HANDS AND WIGGLES HIS RIGHT TOES BUT NOT HIS LEFT. DENIES PAIN. URINE NOW DIANA COLOR; HEMATURIA APPEARS TO BE CLEARING OUT. PT IS STABLE FOR NOW. WILL CONTINUE TO MONITOR.
[2019-10-31] VITALS (24 sets, daily range): BP systolic 101–160; BP diastolic 57–88
[2019-10-31 10:09] LABS: BE(vivo) 8.5 mmol/L (-2 to +3); HCO3 33.7 mmol/L (22.0-26.0); PCO2 49.6 mmHg (35.0-45.0); PO2 63.5 mmHg (80.0-100.0); sO2 92.9 % (92.0-98.0)
--- NOTE | 2019-10-31 14:26 | NUR ---
chart review. pt remains intubated with tube feed for nutritional support. wean trials. noted per notes, possible will requirer trach and peg. pt is following some commands. not anticpated dc over weekend. will cont following as needed for dc needs.
--- NOTE | 2019-10-31 15:51 | NUR ---
PATIENT WAS TRIALED TO DAY ON CPAP 08/28. HIS TRIAL LASTED 60 MINUTES AND AN ABG WAS OBTAINED POST TRIAL. ALL NUMBERS WERE IN NORMAL LIMITS AND NIF AND VC WERE ALSO NORMAL. WE WERE UNABLE TO EXTUBATE DUE TO THE PATIENT NOT BEING ABLE TO FOLLOW COMMANDS OR TRACK. WILL CONTINUE DAILY WEANING TRIALS AND SEDATION VACATIONS.
--- NOTE | 2019-10-31 19:10 | NUR ---
ASSUMED CARE OF PT AT 0645. CPAP X2H. GIVES THUMBS UP AND WIGGLES RIGHT TOES ON SEDATION LEXIS. NOT AGITATED. NEW PINK FROTHY SPUTUM THIS PM. UPDATED DAUGHTER ON THE PHONE. SURGERY CONSULTED FOR POSSIBLE TRACH/PEG.
[2019-11-01] VITALS (24 sets, daily range): BP systolic 95–153; BP diastolic 53–84
[2019-11-01 04:23] LABS: BE(vivo) 9.8 mmol/L (-2 to +3); HCO3 34.7 mmol/L (22.0-26.0); PO2 68.8 mmHg (80.0-100.0); pH 7.468 (7.360-7.450); sO2 94.5 % (92.0-98.0)
[2019-11-01 07:51] LABS: ABSOLUTE NEUTROPHILS 4.8 thou/uL (1.4-8.2); BASOPHILS 1.4 % (0.0-2.0); EOSINOPHILS 2.8 % (0.0-3.0); HEMATOCRIT 27.3 % (42.0-52.0); HEMOGLOBIN 9.1 gm/dL (14.0-18.0); LYMPHOCYTES 16.3 % (24.0-44.0); MCH 27.7 pg (26.0-34.0); MCHC 33.4 g/dL (28.0-37.0); MCV 82.9 fL (80.0-100.0); PLATELET COUNT 210 thou/uL (150-400); POLYS 67.5 % (36.0-66.0); RBC 3.29 mil/uL (4.50-6.00); RDW 13.9 % (10.5-14.5); WBC 7.1 thou/uL (4.0-11.0)
[2019-11-01 08:01] LABS: ALBUMIN 1.4 g/dL (3.4-5.0); CALCIUM 7.1 mg/dL (8.5-10.1); CREATININE 0.9 mg/dL (0.7-1.3); TOTAL BILIRUBIN 0.5 mg/dL (0.2-1.0); TOTAL PROTEIN 5.6 g/dL (6.4-8.2)
[2019-11-01 08:04] LABS: POTASSIUM 2.7 mmol/L (3.5-5.1)
--- NOTE | 2019-11-01 19:30 | NUR ---
Pt maintained on ventilator with no CPAP trials. Pt continues with sedation of Versed and Fentanyl infusions. Pt has had intermittent brief periods of restlessness. Heart rate goes up with agitation. Pt has atrial flutter. No contact with family members today. Clarification made with Dr Mariscal regarding tube feeding orders. Continue to support and work toward goals. Potassium replacement per protocol today. Report given to oncoming RN.
[2019-11-02] VITALS (20 sets, daily range): BP systolic 102–139; BP diastolic 54–79
[2019-11-02 03:47] LABS: BE(vivo) 11.4 mmol/L (-2 to +3); HCO3 36.2 mmol/L (22.0-26.0); PO2 78.4 mmHg (80.0-100.0); pH 7.486 (7.360-7.450); sO2 96.2 % (92.0-98.0)
[2019-11-02 07:52] LABS: HEMATOCRIT 27.1 % (42.0-52.0); HEMOGLOBIN 8.8 gm/dL (14.0-18.0); MCH 27.3 pg (26.0-34.0); MCHC 32.6 g/dL (28.0-37.0); MCV 83.9 fL (80.0-100.0); PLATELET COUNT 237 thou/uL (150-400); RBC 3.23 mil/uL (4.50-6.00); RDW 13.9 % (10.5-14.5); WBC 6.3 thou/uL (4.0-11.0)
[2019-11-02 08:18] LABS: ALBUMIN 1.8 g/dL (3.4-5.0); CALCIUM 8.1 mg/dL (8.5-10.1); CREATININE 0.9 mg/dL (0.7-1.3); POTASSIUM 3.2 mmol/L (3.5-5.1); TOTAL BILIRUBIN 0.4 mg/dL (0.2-1.0)
[2019-11-02 09:04] LABS: ABSOLUTE NEUTROPHILS 4.4 thou/uL (1.4-8.2); PLATELET ESTIMATE NORMAL
--- NOTE | 2019-11-02 17:45 | NUR ---
Pt continues to be sedated and supported with ventilator. No orders for weaning today. Orders received for permit for surgery tomorrow (tracheostomy and PEG tube). Talked with pt's daughter, Radha, this afternoon about tentative surgery. Daughter did not want to give consent for surgery until she has opportunity to discuss with a physician. Page to Dr Mariscal's numeric pager to report low urine output and let him know about daughter's wish to speak to doctor prior to giving consent. Dr Clark also here and indicated he would contact pt's daughter and discuss surgery.
--- NOTE | 2019-11-02 19:30 | NUR ---
PT remains in isolation. No call received back yet from Dr Mariscal. Report given to oncoming nurse who will contact Dr Mariscal or parole or probation officer nurse practioner to discuss urine output.
[2019-11-02 21:52] LABS: URINE BLOOD 3+ (Negative); URINE CLARITY CLEAR; URINE COLOR YELLOW; URINE GLUCOSE-RANDOM* TRACE (Negative); URINE KETONES NEGATIVE (Negative); URINE LEUKOCYTES TRACE (Negative); URINE NITRITE NEGATIVE (Negative); URINE PROTEIN (DIPSTICK) 2+ (Negative); URINE SPECIFIC GRAVITY 1.025 (1.005-1.035); URINE UROBILINOGEN 0.2 E.U./dl (0.2-1.0)
[2019-11-02 21:55] LABS: URINE BILIRUBIN NEGATIVE (Negative)
[2019-11-02 21:56] LABS: ICTOTEST (BILI CONFIRMATORY) Negative (Negative)
[2019-11-02 22:20] LABS: YEAST Present (None Seen)
[2019-11-02 22:23] LABS: BACTERIA None Seen /HPF (None Seen); CASTS None Seen /LPF (None Seen); CRYSTALS None Seen /LPF (None Seen); MUCUS 4-6 Moderate strn/LPF (None Seen); SQUAMOUS 0-3 Few /LPF (0-3); URINE WBC 6-15 Few /HPF (0-5)
[2019-11-03] VITALS (24 sets, daily range): BP systolic 80–172; BP diastolic 45–95
--- NOTE | 2019-11-03 00:39 | NUR ---
PT URINE OUTPUT LESS THAN 30 CC AN HOUR. JHONNY SANTIZO NOTIFIED ABOUT URINE PT URINE OUTPUT. TOLD TO MONITOR THE PT AT THIS MOMENT.
[2019-11-03 01:18] LABS: PROTIME 10.1 Seconds (9.3-11.4)
--- NOTE | 2019-11-03 06:55 | NUR ---
PT FOLLOWS COMMANDS. TACHYCARDIC, AFLUTTER WHEN RESTLESS. NPO SINCE MIDNIGHT. URINE OUTPUT LOW -ONLY 100ML THROUGHOUT THE NIGHT. QUARTER DOPER NOTIFIED ABOUT URINE OUTPUT. POTASSIUM REPLACED.
--- NOTE | 2019-11-03 08:44 | NUR ---
chart review. pt remains intubated, tube feed for nutritional support. pt luis armando to go for trach and peg today around 1100. will cont following as needed for dc needs. md will need to discuss next level of care after trach and peg with family rt ltac.
--- NOTE | 2019-11-03 16:14 | NUR ---
1445 REPORT RECIEVED FROM ISSAC ABURTO.
[2019-11-03 17:45] LABS: POTASSIUM 3.4 mmol/L (3.5-5.1)
--- NOTE | 2019-11-03 18:13 | NUR ---
PT HAD TRACH AND PEG TODAY. TUBE FEEDING WILL START ON SUPERINTENDENT NONSELLING AT 1930 TONIGHT. REMIANS ON MECHANICAL WENTILATION WITH SEDATION. PT DOWN TO 40% FIO2 AND SLIGHT PROGRESSION TOWARDS GOALS.
--- NOTE | 2019-11-03 20:07 | NUR ---
ASSUMED CARE AT 0700. PATIENT TO OR @ 1100 FOR TRACH AND PEG. RETURNED TO UNIT @ 1310. BOTH SURGICAL SITES ARE CLEAN, DRY, AND INTACT. NO SIGNS OF BLEEDING. VENT SETTINGS UNCHANGED. NEUROLOGICALLY INTACT. PATIENT IS OLIGURIC. POTASSIUM REPLACED PER PROTOCOL. REPORT GIVEN TO GRETA ABURTO AT 1445. PATIENT IS PROGRESSING TO PLAN OF CARE. PHYSICIAN SPOKE AT LENGTH WITH FAMILY. PATIENT WAS EDUCATED ON CONDITION AND PLAN OF CARE.
[2019-11-04] VITALS (29 sets, daily range): BP systolic 86–151; BP diastolic 46–90
[2019-11-04 06:08] LABS: HEMATOCRIT 30.2 % (42.0-52.0); HEMOGLOBIN 9.7 gm/dL (14.0-18.0); MCH 26.6 pg (26.0-34.0); MCHC 31.9 g/dL (28.0-37.0); MCV 83.2 fL (80.0-100.0); RBC 3.63 mil/uL (4.50-6.00); RDW 13.7 % (10.5-14.5)
[2019-11-04 06:26] LABS: CALCIUM 7.7 mg/dL (8.5-10.1); CREATININE 1.1 mg/dL (0.7-1.3)
[2019-11-04 06:38] LABS: POTASSIUM 2.9 mmol/L (3.5-5.1)
--- NOTE | 2019-11-04 07:50 | NUR ---
MULTIPLE LIQUID GREEN STOOLS OVERNIGHT. PLACED FMS. PATIENT INCONTINENT AROUND CERON. ATTEMPTED TO REPOSITION CURRENT CERON. CONTINUED TO LEAK. REPLACED CURRENT CERON WITH 18 FR CERON. HAD 150 CC URINE OUT IN CERON BAG. PATIENT CONTINUES TO BE INCONTINENT AROUND CERON ESPECIALLY WITH COUGHING. TUBE FEEDING STARTED IN PEG TUBE ORDERED. PATIENT SPIKED A FEVER OVERNIGHT; TREATED WITH TYLENOL. PATIENT'S POTASSIUM LEVEL CRITICAL THIS AM. REPLACED PER PROTOCOL.
--- NOTE | 2019-11-04 11:37 | NUR ---
ASSUMED PATIENT CARE @0700. PT STABLE, ISSUES WITH CERON. RN DISCUSSING POC WITH DR. ALLEN. TOLARATING T/F WELL, REMAINS ON LIGHT SEDATION. DR GONZALEZ ROUNDING ON PATIENT NO NEW ORDERS. RN DISCUSSED CERON ISSUES WITH DR. ALLEN, STATES BLADDER SCAN AND IRRIGATE X1.
[2019-11-05] VITALS (22 sets, daily range): BP systolic 86–145; BP diastolic 45–85
--- NOTE | 2019-11-05 20:53 | NUR ---
ASSUMED CARE AT 0700. PATIENT OPENS EYES SPONTANEOUSLY AND MOVES ALL EXTREMITIES. SKIN INTACT. RESTRAINTS CHECKED. VENTILATOR SETTINGS UNCHANGED. FENTANYL @ 50 ML/HR, VERSED @ 5 ML/HR, PRECEDEX @ 0.4 MCG/KG/HR. CENTRAL LINE DRESSING CHANGED. PATIENT AND FAMILY UPDATED ON PATIENT CONDITION AND PLAN OF CARE. PATIENT PROGRESSING TOWARDS PLAN OF CARE.
[2019-11-06] VITALS (48 sets, daily range): BP systolic 80–141; BP diastolic 44–79
--- NOTE | 2019-11-06 04:47 | NUR ---
PT CURRENTLY ON PROPOFOL, FENATNYL AND PRECEDEX FOR SEDATION. PT TACHYCARDIC TO 130'S -140'S AND RR IN 30'S WHEN SEDATION TITRATED DOWN. UNABLE TO TITRATE PROPOFOL. PT DID NOT TOLERATE AT ALL. PT BP SYSTOLIC BELOW 90 AND MAP BELOW 65. LEVOPHED STARTED LAST NIGHT. PT DESAT TO LOW 80'S- PT WAS SUCTIONED - UNABLE TO BRING SATS UP- FIO2 INCREASED. URINE OUTPUT DECREASED IN COMPARISON TO DAY SHIFT. PT TOLERATING TUBE FEED. CONTINUE TO MONITOR AT THIS MOMENT.
[2019-11-06 06:26] LABS: CALCIUM 7.7 mg/dL (8.5-10.1); CREATININE 1.3 mg/dL (0.7-1.3); POTASSIUM 3.3 mmol/L (3.5-5.1)
--- NOTE | 2019-11-06 11:33 | NUR ---
This nurse spoke to patients daughter, Radha Gtz, at 1120 this morning. Patients daughter was updated on his status and plan of care. Patient still not able to start CPAP trial, but FiO2 was weaned to 60% this morning and patient is tolerating well. Patient still on Levophed gtt for blood pressure support and patients HR is in the low 100's. Therefore patient is not progressing towards goals due to hemodynamic instability.
[2019-11-07] VITALS (38 sets, daily range): BP systolic 75–124; BP diastolic 40–65
[2019-11-07 05:09] LABS: HEMATOCRIT 21.3 % (42.0-52.0); MCH 26.9 pg (26.0-34.0); MCHC 32.9 g/dL (28.0-37.0); MCV 81.7 fL (80.0-100.0); RBC 2.6 mil/uL (4.50-6.00); RDW 14.1 % (10.5-14.5); WBC 11.7 thou/uL (4.0-11.0)
[2019-11-07 05:42] LABS: CALCIUM 7.6 mg/dL (8.5-10.1); POTASSIUM 4.2 mmol/L (3.5-5.1)
[2019-11-07 05:59] LABS: CREATININE 2.4 mg/dL (0.7-1.3)
--- NOTE | 2019-11-07 13:00 | NUR ---
bladder residual- 8cc. irrigated de leon with sterile water obtaining small coffee ground flecks and sediment in urine. urine sent to lab.
[2019-11-07 14:02] LABS: URINE BILIRUBIN NEGATIVE (Negative); URINE BLOOD 3+ (Negative); URINE CLARITY CLOUDY; URINE COLOR YELLOW; URINE GLUCOSE-RANDOM* NEGATIVE (Negative); URINE KETONES TRACE (Negative); URINE LEUKOCYTES 2+ (Negative); URINE NITRITE NEGATIVE (Negative); URINE PROTEIN (DIPSTICK) 2+ (Negative); URINE UROBILINOGEN 0.2 E.U./dl (0.2-1.0)
--- NOTE | 2019-11-07 14:07 | NUR ---
pt remains on vent, tube feed for nutritional support. will cont following as needed for dc needs. no anticpated dc over weekend.
[2019-11-07 14:16] LABS: YEAST Present (None Seen)
[2019-11-07 14:19] LABS: AMORPHOUS URATES Moderate /LPF (None Seen); BACTERIA >30 Many /HPF (None Seen); CASTS None Seen /LPF (None Seen); SQUAMOUS None Seen /LPF (0-3)
[2019-11-07 14:20] LABS: URINE RBC 3-10 Few /HPF (0-2); URINE WBC 6-15 Few /HPF (0-5)
--- NOTE | 2019-11-07 19:50 | NUR ---
return call placed to Radha Gtz, daughter. unable to reach her at this time. attempted to leave a message, unsuccessfully.
[2019-11-08] VITALS (32 sets, daily range): BP systolic 83–149; BP diastolic 47–87
--- NOTE | 2019-11-08 06:00 | NUR ---
REMAINS INTUBATED AND SEDATED. NEW CERON REPLACED, ONLY 4CC PALE YELLOW UO. FEBRILE. FMS WITH A SMALL DELMA LIQ STOOL. WILL CONT TO MONITOR
[2019-11-08 08:42] LABS: ALBUMIN 1.3 g/dL (3.4-5.0); CALCIUM 7.5 mg/dL (8.5-10.1); PHOSPHORUS 4.2 mg/dL (2.5-4.9); POTASSIUM 4.5 mmol/L (3.5-5.1)
[2019-11-08 08:44] LABS: CREATININE 4.2 mg/dL (0.7-1.3)
--- NOTE | 2019-11-08 21:56 | NUR ---
no urine output, remains sedated on vent, not progressing.
[2019-11-09] VITALS (54 sets, daily range): BP systolic 79–144; BP diastolic 40–84
[2019-11-09 05:45] LABS: BE(vivo) -8.9 mmol/L (-2 to +3); HCO3 20.2 mmol/L (22.0-26.0); PO2 74.6 mmHg (80.0-100.0); sO2 89.3 % (92.0-98.0)
[2019-11-09 05:46] LABS: pH 7.118 (7.360-7.450)
[2019-11-09 06:18] LABS: HEMATOCRIT 20.7 % (42.0-52.0); MCV 84.4 fL (80.0-100.0); RBC 2.46 mil/uL (4.50-6.00)
[2019-11-09 06:21] LABS: HEMOGLOBIN 6.6 gm/dL (14.0-18.0); MCHC 31.9 g/dL (28.0-37.0); WBC 13.6 thou/uL (4.0-11.0)
--- NOTE | 2019-11-09 06:30 | NUR ---
REMAINS INTUBATED AND SEDATED. MONITOR SHOWS AFIB AFEBRILE. CONT TO HAVE ZERO URINE OUTPUT. NOT PROGRESSING TOWARD GOALS. K 6.[address] DOUGLAS NOTIFIED. NO ORDERS AT THIS TIME. WILL CONT TO MONITOR.
[2019-11-09 06:48] LABS: ALBUMIN 1.4 g/dL (3.4-5.0); CALCIUM 7.7 mg/dL (8.5-10.1); PHOSPHORUS 8.2 mg/dL (2.5-4.9); TOTAL BILIRUBIN 0.4 mg/dL (0.2-1.0); TOTAL PROTEIN 6.6 g/dL (6.4-8.2)
[2019-11-09 06:50] LABS: CREATININE 5.3 mg/dL (0.7-1.3); POTASSIUM 6.4 mmol/L (3.5-5.1)
--- NOTE | 2019-11-09 07:30 | NUR ---
DR JOHNSON CALLED [facility] PH 7.11 LEFT ORDERS FOR 2 AMPS BICARB WILL CONT TO MONITOR.
[2019-11-09 13:11] LABS: CALCIUM 7.2 mg/dL (8.5-10.1)
[2019-11-09 13:14] LABS: CREATININE 3.6 mg/dL (0.7-1.3); POTASSIUM 4.4 mmol/L (3.5-5.1)
[2019-11-09 19:23] LABS: CALCIUM 7.8 mg/dL (8.5-10.1); POTASSIUM 3.8 mmol/L (3.5-5.1)
--- NOTE | 2019-11-09 19:30 | NUR ---
Dr. Flores discussed pt's renal status with Radha Gtz, daughter. plan for placement of dialysis catheter and dialysis. temporary dialysis catheter placed by Dr. Flores. Dialysis from 1108 to 1730 with 1.3 liters removed. versed and fentanyl off, precedex continued. bp unstable with levophed titrated up to 20 mcg/kg/min. spoke with Radha Gtz, daughter updating her on pt status.
[2019-11-10] VITALS (102 sets, daily range): BP systolic 74–172; BP diastolic 36–141
--- NOTE | 2019-11-10 06:00 | NUR ---
REMAINS INTUBATED AND NONRESPONSIVE. CONT TO HAVE 0 URINE OUTPUT. LEVOPHED TITRATED TO 8 MCG REMAINS IN AFIB RATE 82 WILL HAVE HEMODIALYSIS TODAY. NOT PROGRESSING TOWARDS GOALS. REMAINS A FULL CODE DOCTORS AND DAY NURSE GABRIELLE SPOKE WITH FAMILY AT [facility] YESTERDAY ABOUT PTS GRAVE CONDITION
[2019-11-10 06:01] LABS: MCH 26.5 pg (26.0-34.0)
[2019-11-10 06:03] LABS: MCHC 32.1 g/dL (28.0-37.0); MCV 82.6 fL (80.0-100.0); RBC 2.35 mil/uL (4.50-6.00); RDW 15.2 % (10.5-14.5); WBC 14.6 thou/uL (4.0-11.0)
[2019-11-10 06:07] LABS: HEMOGLOBIN 6.2 gm/dL (14.0-18.0)
[2019-11-10 06:08] LABS: HEMATOCRIT 19.4 % (42.0-52.0)
[2019-11-10 06:27] LABS: ALBUMIN 1.7 g/dL (3.4-5.0); CALCIUM 7.9 mg/dL (8.5-10.1); PHOSPHORUS 5.9 mg/dL (2.5-4.9)
[2019-11-10 06:34] LABS: CREATININE 3.5 mg/dL (0.7-1.3)
--- NOTE | 2019-11-10 09:00 | NUR ---
chart review. pt nonresponsive, has trach and peg, possible getting dialysis cath today and dialysis.
--- NOTE | 2019-11-10 10:00 | NUR ---
DR. JOHNSON NOTIFIED RR 40S. AND THAT PT VOMITED TWICE. TUBE FEEDING PLACED ON HOLD. NO NEW ORDERS. ALSO UPDATED DR. ALLEN OF THE SAME.
--- NOTE | 2019-11-10 17:54 | NUR ---
VAT CONSULTED FOR A NEW CL IN HIS RT IJ THE LT IJ WAS MALPOSITONED. OFFERED A COUPLE OF PIV'S FOR A CL HOLIDAY DUE TO THE FUNGAL CX AND A CL REQUESTED. LINE IS RELEASED FOR USE, PLEASE SEE INSERTION NI FOR DETAILS
--- NOTE | 2019-11-10 18:34 | NUR ---
PT NOT MOVING TOWARDS GOALS. UNRESPONSIVE. VERY TACHCAPNEIC WITHOUT SEDATION. HD TODAY, NET ZERO TWO UNITS PC GIVEN. LEVOPHED KEEPING MAP > 65. NEW R IJ TL PLACED. [employer] CALLED [facility].
[2019-11-10 22:06] LABS: HEP B SURFACE Ab(ANTI-HBS Non Reactive (()); HEPATITIS B SURFACE AG Negative (Negative)
[2019-11-11] VITALS (83 sets, daily range): BP systolic 73–176; BP diastolic 43–110
[2019-11-11 01:50] LABS: ABSOLUTE NEUTROPHILS 12.1 thou/uL (1.4-8.2); BASOPHILS 0.4 % (0.0-2.0); EOSINOPHILS 0.2 % (0.0-3.0); HEMATOCRIT 23.4 % (42.0-52.0); HEMOGLOBIN 7.7 gm/dL (14.0-18.0); LYMPHOCYTES 10.1 % (24.0-44.0); MCH 27.2 pg (26.0-34.0); MCHC 32.9 g/dL (28.0-37.0); MCV 82.7 fL (80.0-100.0); MONOCYTES 9.3 % (1.0-8.0); PLATELET COUNT 509 thou/uL (150-400); RBC 2.83 mil/uL (4.50-6.00); RDW 15.2 % (10.5-14.5); WBC 15.1 thou/uL (4.0-11.0)
--- NOTE | 2019-11-11 03:04 | NUR ---
PT REMIANS ON THE VENT. LUNGS ARE COARSE THROUGH OUT. AFIB ON THE COMMERCIAL DOOR INSTALLER. COVID POSITIVE. RECTAL TUBE AND CERON TUBE IN PLACE. 2PLUS GENERAL EDEMA NOTED. PT HAS A TEMPORARY DIALYSIS CATHETER IN RIGHT FEMORAL. REMAINS ON DRIPS FOR SEDATION. VITALS ARE STABLE. HEMOGLOBIN SEE VALUE IMPROVED STATUS POST BLOOD TRANSUFSION YESTERDAY. PRAVO BOOTS ON BILAERAL. WILL CONTINUE TO ASSESS AND MONITOR PER NURSING. WILL CONTINUE TO PROGRESS TOWARDS OPTIMAL GOALS AT THIS TIME
[2019-11-11 08:24] LABS: ALBUMIN 1.8 g/dL (3.4-5.0); CALCIUM 7.8 mg/dL (8.5-10.1); CREATININE 3.3 mg/dL (0.7-1.3); PHOSPHORUS 5.1 mg/dL (2.5-4.9); POTASSIUM 4.3 mmol/L (3.5-5.1)
--- NOTE | 2019-11-11 16:55 | NUR ---
ASSUMED CARE PT SHIFT CHANGE. ASSESSMENTS CHARTED. MEDS GIVEN PER MAY. PT UNRESPONSIVE. SEDATED. DOES NOT FOLLOW COMMANDS. DOES NOT RESPOND TO PAIN STIMULUS. VSS, PT ON VERSED, FENTANYL, PRECEDEX GTT FOR SEDATION. LEVOPHED GTT FOR BP SUPPORT. TITRATED NEEDED. FECAL TUBE BAG CHANGED. PT HAS MINIMAL LOOSE STOOL IN TUBE. ILEUS PER SURGEON. VERBAL ORDER TO CONNECT PEG TUBE TO DRAINAGE BAG RESIDUALS <300. TUBE FEEDS REMAIN ON HOLD. PEG TUBE CONTINUES TO BE CONNECTED TO DRAINAGE BAG. URINE OUTPUT MINIMAL. CERON BAG CHANGED. PT TO HAVE DIALYSIS TOMORROW PER NEPHRO. PT REMAINS IN AFIB CONTROLLED ON MONITOR. BLOOD SUGARS MANAGED. VENT SETTINGS: PEEP 10. FIO2 50%. TV 500. AC 15. TRACH INTACT, SUCTIONED PRN. PT REMAINS SEDATED IN NO APPARENT DISTRESS. CONTINUING TO MONITOR.
[2019-11-12] VITALS (96 sets, daily range): BP systolic 94–139; BP diastolic 51–86
--- NOTE | 2019-11-12 03:10 | NUR ---
ASSUMED CARE OF PATIENT AT 1900. SEDATION MEDS TITRATED THROUGH THE NIGHT. TOLERATING SO FAR. LEVOPHED TITRATED DOWN WELL, MAP REMAINS GREATER THAN 65. PATIENT DOES NOT RESPOND TO ANY STIMULI. URINE OUTPUT MARGINAL. NOT PROGRESSING TOWARDS POC GOALS.
[2019-11-12 06:03] LABS: ALBUMIN 1.6 g/dL (3.4-5.0); CALCIUM 7.6 mg/dL (8.5-10.1); CREATININE 3.9 mg/dL (0.7-1.3); PHOSPHORUS 6.4 mg/dL (2.5-4.9); POTASSIUM 4.3 mmol/L (3.5-5.1)
--- NOTE | 2019-11-12 15:55 | NUR ---
DIALYSIS AGAIN TODAY, STRIKING A BALANCE BETWEEN TAKING OFF FLUID WHILE NOT LOWERING SOFT BP. PRESSURES, MAP HELD. MULTIPLE DRIPS. KIDNEYS MAKING SOME URINE. FECAL TUBE PATENT, SCANT DRAINAGE. AFIB PER TELE. ANASARCA. FALL PRECAUTIONS IN PLACE.
[2019-11-13] VITALS (19 sets, daily range): BP systolic 103–131; BP diastolic 47–79
--- NOTE | 2019-11-13 02:16 | NUR ---
ASSUMED CARE OF PATIENT AT 1900. SEDATION VACATION DONE AT 1999. NOT RESPONDING TO COMMANDS, BECOMES TACHYCARDIC AND TACHYPNIC. AT 0130 BATH GIVEN. PATIENT MORE ALERT, OPENS EYES SLIGHTLY TO COMMAND AND ABLE TO WIGGLE LEFT TOES. FMS FLUSHED, 200 MLS STOOL OUT. REMAINS ON LESS SEDATION, LEVOPHED TURNED OFF. NOT PROGRESSING TOWARDS POC GOALS.
[2019-11-13 04:01] LABS: CALCIUM 7.8 mg/dL (8.5-10.1); CREATININE 2.6 mg/dL (0.7-1.3); POTASSIUM 3.3 mmol/L (3.5-5.1)
--- NOTE | 2019-11-13 15:24 | NUR ---
ASSUMED CARE AT SHIFT CHANGE. PT STABLE THROUGHOUT SHIFT. DECREASED PRECEDEX GTT AND PT WAS ABLE TO OPEN EYES, SQUEEZE MY HAND AND NOD YES AND NO TO QUESTIONS. PT DID NOT HAVE DIALYISIS TODAY AND MIGHT RESUME TOMORROW PER RENAL. PT POTASSIUM REPLACED PER PROTOCOL TODAY, RECHECK PENDING. PROGRESSING TOWARDS POC GOALS. NO DISTRESS NOTED. WILL CONT TO MONITOR.
[2019-11-14] VITALS (22 sets, daily range): BP systolic 99–149; BP diastolic 60–85
[2019-11-14 02:31] LABS: ALBUMIN 1.7 g/dL (3.4-5.0); CALCIUM 8.1 mg/dL (8.5-10.1); CREATININE 3.4 mg/dL (0.7-1.3); PHOSPHORUS 5.6 mg/dL (2.5-4.9); POTASSIUM 3.5 mmol/L (3.5-5.1)
--- NOTE | 2019-11-14 09:58 | NUR ---
cm notified by cm team, that md say pt ready [facility]. cm team notified md that his pat and has no payor source. noted per chart possible having dialysis today. js remain with trach/peg and vent support FIO2 40 % and PeeP 10. no anticipated dc over the weekend. will cont following as needed for dc needs.
--- NOTE | 2019-11-14 15:04 | NUR ---
pt remains vent with trach and peg. possible dialysis today or tomorrow. cm spoke with daughter candy tried to get js verified " [birth year] i don't know how old he is or year"/candy. cm spoke with son rayne also " i don't know ex , found paper that has 1950 on hardness inspector"/son rayne hicks. pt son going to send copy of text or e-mail of hardness inspector. will cont following as needed for dc needs.
--- NOTE | 2019-11-14 19:21 | NUR ---
during sedation vacation fentanyl and versed both off. pt remained calm, gtts not restarted at this time. precedex titrated down throughout shift now at 0.4 mcg/kg/hr. he remains drowsy. tolerating trickle tube feeding, reglan administered. rad moralez, daughter called to inquire regarding pt status, updated including very weakly squeezing finger and gross motor movement of upper extremities, too weak to wiggle toes or move lower extremities. tube feeding infusing, no dialysis today however plan for dialysis will be evaluated on a daily basis. all questions to understanding.
[2019-11-15] VITALS (24 sets, daily range): BP systolic 108–143; BP diastolic 60–99
[2019-11-15 05:50] LABS: ALBUMIN 1.9 g/dL (3.4-5.0); CALCIUM 8.3 mg/dL (8.5-10.1); CREATININE 4.3 mg/dL (0.7-1.3); PHOSPHORUS 6.7 mg/dL (2.5-4.9); POTASSIUM 3.4 mmol/L (3.5-5.1)
--- NOTE | 2019-11-15 20:05 | NUR ---
BEAU SHAYNA, DAUGHTER CALLED TODAY INQUIRING REGARDING PT STATUS. UPDATED- PT ON VERY SMALL AMOUNT OF SEDATION, RESP EVEN AND UNLABORED ON VENT, MORE AWAKE THAN PREVIOUS DAY AND MOVING HIS UPPER EXTREMITIES MORE ALTHOUGH HE STILL REMAINS VERY WEAK. PT VERY SLOWLY PROGRESSING.
[2019-11-16] VITALS (25 sets, daily range): BP systolic 98–146; BP diastolic 67–98
[2019-11-16 06:47] LABS: CREATININE 3.4 mg/dL (0.7-1.3); PHOSPHORUS 4.4 mg/dL (2.5-4.9); POTASSIUM 3.2 mmol/L (3.5-5.1)
--- NOTE | 2019-11-16 14:46 | NUR ---
BEAU CORRAL- DAUGHTER FACE TIMED WITH HER FATHER FOR 10 MINUTES.
[2019-11-17] VITALS (21 sets, daily range): BP systolic 101–142; BP diastolic 69–94
[2019-11-17 06:08] LABS: CALCIUM 8.3 mg/dL (8.5-10.1); MAGNESIUM 1.8 mg/dL (1.8-2.4); POTASSIUM 3.8 mmol/L (3.5-5.1)
--- NOTE | 2019-11-17 06:45 | NUR ---
ASSUMED PT CARE AT 1900. PT AWAKE AND ALERT, FOLLOWS COMMANDS, MOUTHS WORDS AND NODS APROPRITELY. PT IS STABLE, HR TRENDING DOWN THIS AM. PT HAD AN UNEVENTFUL NOC. PT PROGRESSING WELL TOWARDS POC GOALS
[2019-11-17 09:32] LABS: BE(vivo) 5.8 mmol/L (-2 to +3); HCO3 30.1 mmol/L (22.0-26.0); PCO2 42.6 mmHg (35.0-45.0); PO2 102.8 mmHg (80.0-100.0); pH 7.467 (7.360-7.450)
--- NOTE | 2019-11-17 14:42 | NUR ---
chart review, spoke with bedside nurse, had question on dcp. education that have no payor source. still trying to get pt ss #. both son and daughter can not provide that. pt unable to report ss # either. trach and peg with vent support. tf for nutritional support. dialysis when order. will cont following as needed for dc needs.
--- NOTE | 2019-11-17 19:45 | NUR ---
RECIEVED PT FROM ICU, UPON ARRIVAL TO UNIT PT ALERT AND ORIENTED TO SITUATION , VENT ON TV 500 RATE 15 FI02 40 % PT SAT 100 % . WEB CONTENT PRODUCER SHOW AFIB HR 118 . RIGHT IJ TRIPLE LUMEN INTACT AND PATENT WHEN FLUSHED. FECAL MANAGMENT SYSTEM INTACT WITH BROWN LIQ STOOL. PT AWAKE THROUHGOUT ROUNDING, HR INCREASED TO 140'S AMIODARONE DRIP STARTED AT 16.7 ML/HR ( .5 /MIN). HEART DRECEASED TO 119 AT 0600. BP STABLE.WILL CONINTUE WITH CURRENT PLAN OF CARE, AND WILL REPORT CHANGES.
--- NOTE | 2019-11-17 21:05 | NUR ---
ASSUMED CARE AT 0700. PATIENT WAS ON VITAL 1.5 @ 45 ML/HR. TOLERATED TUBE FEEDING EVIDENCED BY MINIMAL RESIDUAL THROUGHOUT THE DAY. MADE CONTACT WITH FAMILY AND UPDATED AND EDUCATED THEM ON THE PLAN OF CARE AND PATIENT CONDITION. UOP ADEQUATE AT 1825. DARK SEDIMENT FOUND IN URINE.
[2019-11-18] VITALS (8 sets, daily range): BP systolic 123–147; BP diastolic 8–98
[2019-11-18 05:42] LABS: ABSOLUTE NEUTROPHILS 16.1 thou/uL (1.4-8.2); BASOPHILS 0.5 % (0.0-2.0); EOSINOPHILS 0.8 % (0.0-3.0); HEMATOCRIT 30.3 % (42.0-52.0); HEMOGLOBIN 10.1 gm/dL (14.0-18.0); LYMPHOCYTES 5.9 % (24.0-44.0); MCH 27.9 pg (26.0-34.0); MCHC 33.3 g/dL (28.0-37.0); MCV 83.8 fL (80.0-100.0); MONOCYTES 8.2 % (1.0-8.0); PLATELET COUNT 517 thou/uL (150-400); POLYS 84.6 % (36.0-66.0); RBC 3.61 mil/uL (4.50-6.00); RDW 16.4 % (10.5-14.5)
[2019-11-18 06:05] LABS: ALBUMIN 2.2 g/dL (3.4-5.0); CALCIUM 8.1 mg/dL (8.5-10.1); CREATININE 4.2 mg/dL (0.7-1.3); POTASSIUM 3.7 mmol/L (3.5-5.1); TOTAL BILIRUBIN 0.5 mg/dL (0.2-1.0); TOTAL PROTEIN 6.1 g/dL (6.4-8.2)
[2019-11-18 10:11] LABS: BE(vivo) 5.9 mmol/L (-2 to +3); HCO3 29.8 mmol/L (22.0-26.0); PCO2 40.8 mmHg (35.0-45.0); PO2 101.7 mmHg (80.0-100.0); pH 7.482 (7.360-7.450)
--- NOTE | 2019-11-18 11:05 | NUR ---
Rec new tube feed goal of vital 1.5 of 55ml/hr. Would need order from Dr Quintana or Dr Montesinos.
--- NOTE | 2019-11-18 15:01 | NUR ---
PT CARE ASSUMED AT 0700, PT ALERT AND ORIENTED X2, ABLE TO FOLLOW COMMANDS AND MOUTH OUT WORDS. TRACHEOSTOMY IN PLACE, VENT SETTING ARE PER ORDER,SECRETION ARE THICK AND BLUM IN COLOR. NO SIGNS OF DISTRESS NOTED. PEG TUBE PLACEMENT VERIFIED, TUBE FEEDING RUNNING PER ORDER AND ITS AT GOAL RATE. FMS AND CATHETER IN PLACE. PT REPOSITION IN EVERY 2 HOURS. PT DILCIA CALLED AND UPDATED ON PT CARE. PT IS PROGRESSING TOWARDS CARE. BED AT LOWEST LEVEL WITH ALARM ON. WILL CONTINUE TO MONITOR.
--- NOTE | 2019-11-18 16:16 | NUR ---
SW reviewed chart and spoke with nursing and attending physician. Pt was transferred to from ICU s/p trach/peg placement. Pt is requiring ventilator support. Pt is in Enhanced Isolation due to COVID-19. Last test was done on 10/14. Cardiology consulted due to Afib with [facility]. [facility] has been following to assist with Medicaid application. SW reviewed pt's chart and found of 03/04/1954 from pt's prior ER visit on 06/27/1991. CHELSEA discussed case with [facility] public safety who ran pt's current address and came up with same of 03/04/1954. SW provided this info to Nam with [employer], who states that they would need pt's family to sign consent form on behalf of pt. SW spoke with pt's dt, Radha, via phone to provide update. Per Radha, she or her brother would be able to come to [facility] to sign consent forms if needed. SW explained that these forms are needed in order to start working on post-acute placement in an LTAC facility for continued vent weaning. Pt's dtr verbalized understanding. Radha's contact info provided to Radha. SW received physician statement form from Nam at [facility] [employer] for physician signature, which would allow [employer] to apply for Medicaid/financial assistance on behalf of pt, as he is not able to sign any documents at this time. Statement placed on pt's chart and SW notified attending physician. CHELSEA is following to assist as needed with discharge planning.
[2019-11-19 04:08] VITALS: BP 170/98
--- NOTE | 2019-11-19 04:28 | NUR ---
ASSUMED CARE OF PT FROM DAY SHIFT PT RESTLESS AT TIMES ASK IF HE WAS HAVING PAIN , PT NODDED HIS HEAD "YES" PT REPOSITION TO SIDE AND COMFORT , MORPHINE GIVEN AND PT WAS ABLE TO RELAX AND SLEEP. PT AWAKEN OFTEN THROUGHOUT HOURLY ROUNDS, TECHNOLOGIST DEVELOPMENT SHOWS AFIB HR 80,S -LOW 100,S . WILL CONITINUE WITH CURRENT PLAN OF CARE, AND REPORT CHANGES.
[2019-11-19 06:44] LABS: ALBUMIN 2.2 g/dL (3.4-5.0); CALCIUM 8.3 mg/dL (8.5-10.1); CREATININE 3.6 mg/dL (0.7-1.3); PHOSPHORUS 5.5 mg/dL (2.5-4.9); POTASSIUM 3.7 mmol/L (3.5-5.1)
[2019-11-19 08:00] VITALS: BP 159/90
--- NOTE | 2019-11-19 11:27 | NUR ---
CHELSEA reviewed chart and spoke with nursing. Pt is in Enhanced Isolation due to COVID-19. Attending physician signed medical statement for [employer] to apply for Medicaid/financial assistance on pt's behalf. CHELSEA provided signed form to Nam with [employer]. CHELSEA spoke with pt's dtr, Radha, via phone to provide update. Pt's dtr is agreeable with the hospital applying for Medicaid/financial assistance on pt's behalf. CHELSEA discussed next step--LTAC placement for continued vent weaning and medical mgmt. SW discussed options for LTAC. Pt's dtr is agreeable with referral to [facility], as pt [place] be [place]. CHELSEA faxed referral and confirmed info was received with liaison. Awaiting input from [facility]. Requested repeat COVID test. CHELSEA is following to assist as needed with discharge planning.
[2019-11-19 12:21] VITALS: BP 136/88
--- NOTE | 2019-11-19 15:54 | NUR ---
ASSUMED PATIENT CARE AT 0700. ALERT. RESTLESS, DISCONNECTED VENT TUBING SO MANY TIMES. PULLED PEG TUBE OUT. DR DOBBINS CAME IN PUT NEW ONE BACK. STARTED HO WRIST RESTRAINT AT 1100. FAMILY NOTEFIED. PATIENT TOLERATED ON CPAP. VSS. ALICIA KKEP MONITOR.
[2019-11-19 16:47] VITALS: BP 139/91
[2019-11-19 20:34] VITALS: BP 112/78
[2019-11-20 05:07] VITALS: BP 124/76
--- NOTE | 2019-11-20 06:23 | NUR ---
RECIEVED CARE OF PT FROM DAY SHIFT, PT IN SOFT RESTRAINTS, APPEARS TO BE RESTLESS AT TIMES , SAT 99 % , PT REPOSITIONED FOR COMFORT. AND MEDICATON GIVEN FOR AGITATION , PT THE WAS ABLE TO REST AND SLEEP CARIAC MONITOR SHOWS AFIB 80-90 , BP STABLE. WILL CONITINUE WITH CURRENT PLAN OF CARE , AND ALICIA REPORT CHANGES.
[2019-11-20 06:58] LABS: CALCIUM 8.3 mg/dL (8.5-10.1); CREATININE 3.4 mg/dL (0.7-1.3); PHOSPHORUS 5.2 mg/dL (2.5-4.9); POTASSIUM 4.1 mmol/L (3.5-5.1)
[2019-11-20 11:25] VITALS: BP 136/86
--- NOTE | 2019-11-20 15:34 | NUR ---
CHELSEA reviewed chart and spoke with nursing and attending physician. Pt is in Enhanced Isolation due to COVID-19. Pt is afebrile and on IV abx. Pt has trach/peg in place. Pt requiring ventilator support. Pt is in restraints. Pt pulled out peg tube yesterday and had peg tube replaced. Pt has required dialysis. Request for repeat COVID test. Contact info for pt's dtr provided to [facility] liaison. CHELSEA is following to assist as needed with discharge planning.
[2019-11-20 16:26] VITALS: BP 149/92
--- NOTE | 2019-11-20 18:27 | NUR ---
PATIENT HAS RESTED IN BED THROUGH THE DAY. CONT ON VENT, PEG TUBE AND IV VIA PICC TO NECK. HE HAS NOT VOICED COMPLAIN OF PAIN. HE JUST REQUESTS TO DRINK WATER. PT HAS CONT ON RESTRAINTS DURING TRIAL RELEASE, HE WAS NOTED TO TAKE OFF HIS ABDOMINAL BINDER MONITOR LEADS. RESTRAINTS REAPPIED. PLEASANT WITH CARE. WILL CONT TO MONITOR AND ASSIST NEEDED.
[2019-11-21 00:28] VITALS: BP 137/91
[2019-11-21 04:50] VITALS: BP 125/77
[2019-11-21 06:47] LABS: HEMATOCRIT 27.7 % (42.0-52.0); MCH 27.6 pg (26.0-34.0); MCHC 32.6 g/dL (28.0-37.0); MCV 84.6 fL (80.0-100.0); RBC 3.28 mil/uL (4.50-6.00); RDW 17.2 % (10.5-14.5); WBC 13.7 thou/uL (4.0-11.0)
--- NOTE | 2019-11-21 06:52 | NUR ---
PT MAKING POOR PROGRESS TOWARDS GOALS. ON VENTILATOR OVERNIGHT. LUNGS DIMINISHED THROUGHOUT. NO COUGHING NOTED. DURING PARTIAL BED BATH THIS AM PT RESTRAINTS UNTIED FROM BED TO ALLOW PT TO DO SOME ROM. UNFORTUNATELY PT PULLED ON PEG TUBE, AND THIS RN WAS UNABLE TO ASSESS WHETHER IT IS IN CORRECT POSITION. THIS AM KUB WAS DONE BUT WITHOUT CONTRAST. WILL ASK DAY RN TO DISCUSS WITH PHYSICIAN.
[2019-11-21 07:08] LABS: ALBUMIN 2.3 g/dL (3.4-5.0); CALCIUM 8.5 mg/dL (8.5-10.1); CREATININE 3.9 mg/dL (0.7-1.3); PHOSPHORUS 4.6 mg/dL (2.5-4.9); POTASSIUM 4.2 mmol/L (3.5-5.1)
[2019-11-21 07:39] VITALS: BP 152/91
[2019-11-21 11:26] VITALS: BP 148/86
[2019-11-21 15:05] VITALS: BP 135/84
--- NOTE | 2019-11-21 15:53 | NUR ---
CHELSEA reviewed chart and spoke with nursing. Pt is in Enhanced Isolation due to COVID-19. Pt is in restraints due to pulling at lines. Pt's family brought in pt's certificate which has the name "Arthur Gtz." This info was provided to Nam with [employer]. [place] been [place] on pt's behalf by [employer]. CHELSEA updated Kathe at [facility]. CHELSEA contacted [facility] public safety to see if pt has any of pt's personal belongings. No weekend discharge planned. CHELSEA is following to assist as needed with discharge planning.
--- NOTE | 2019-11-21 18:45 | NUR ---
PATIENT CONT TO BE CONFUSED THIS PM. HAS TAKEN PATIENT OFF RESTRAINTS SINCE 3 PM AND HE HAS NOT PULLED ANY CORDS AT THIS TIME. CERON, PEG TUBE INTACT. ON TRACH SHIELD AT THIS TIME. WILL CONT WITH PLAN OF CARE.
[2019-11-21 20:15] VITALS: BP 154/87
[2019-11-22] VITALS (7 sets, daily range): BP systolic 141–160; BP diastolic 84–95
[2019-11-22 05:52] LABS: ALBUMIN 2.2 g/dL (3.4-5.0); CALCIUM 8.1 mg/dL (8.5-10.1); CREATININE 3.7 mg/dL (0.7-1.3); PHOSPHORUS 4.1 mg/dL (2.5-4.9); POTASSIUM 4.2 mmol/L (3.5-5.1)
--- NOTE | 2019-11-22 07:15 | NUR ---
PT MAKING SLOW PROGRESS TOWARDS GOALS. PLACED ON VENTILATOR BY RT AT START OF SHIFT. PT O2 SAT STABLE ON VENTILATOR OVERNIGHT. SEE VS. WEAK COUGH NOTED WITH TRACHEAL SUCTIONING, MINIMAL SECRETIONS NOTED. LUNGS VARIED FROM DIMINISHED TO COARSE AT TIMES. SEE CHARTING.
--- NOTE | 2019-11-22 17:27 | NUR ---
RESTRAITS REMOVED TODAY FOR A BRIEF PERIOD AND PATIENT WAS NOTED ATTEMPTING TO TAKE OFF CORDS. PLACED BACK TO RESTRAINTS. HE WAS NOTED TO BE HYPOXIC THIS AM AND PLACED BACK TO VENT. NOTED TO HAVE SIGNIFICANTLY MORE SPUTUM THIS PM. WILL CONT WITH PLAN OF CARE.
[2019-11-23 03:00] VITALS: BP 148/92
--- NOTE | 2019-11-23 04:49 | NUR ---
PT MAKING SLOW PROGRESS TOWARDS GOALS. NOTED OVERNIGHT PT STARTED PRODUCING SMALL AMOUNTS OF TANNISH/BLOOD TINGED SPUTUM. WEAK COUGH, EVEN DURING SUCTIONING.
[2019-11-23 06:32] LABS: ALBUMIN 2.2 g/dL (3.4-5.0); CALCIUM 8.1 mg/dL (8.5-10.1); CREATININE 3.4 mg/dL (0.7-1.3); PHOSPHORUS 4.1 mg/dL (2.5-4.9); POTASSIUM 4.1 mmol/L (3.5-5.1)
[2019-11-23 07:00] VITALS: BP 161/93
--- NOTE | 2019-11-23 10:14 | NUR ---
DR. FRANCIS ROUNDING THIS AM. STATES WANTS TEMP DIALYIS CATH OUT. PATIENT WILL NOT LONGER BE NEEDING DILAYSIS. CLARFIED IF ELIQUIS NEEDS TO BE HELD PRIOR TO PROCEDURE AND STATES HOLD FOR TONIGHT AND TOMORROW IV TEAM TO TAKE OUT HD CATH. MADE HOUSE SUP CECILIA AWARE. SPOKE WITH DR. CASEY ROUNDING ON UNIT. STATES OK WITH THEM TO HOLD ELIQUIS WELL. HOLD ORDERS PLACED ON ELIQUIS BY CARDIO UNTIL AFTER HD CATH REMOVED.
--- NOTE | 2019-11-23 14:42 | NUR ---
ORDER NOTED FOR THE VASCULAR ACCESS NURSE TO DISCONTINUE THE DIALYSIS LINE TOMORROW AFTER THE ELIQUIS IS HELD.
--- NOTE | 2019-11-23 16:27 | NUR ---
ASSUMED PATIENT CARE THIS AM AT APPROXIMATELY 0700. PATIENT AWAKE AND ALERT. APPEARS TO BE ORIENTED AND COOPERATIVE WITH CARE. ABLE TO USE CALL LIGHT FOR ASSISTANCE. TURNED IN BED Q2H THIS SHIFT. REFUSED TO WEAR SCDS AND PRAFO BOOTS THIS SHIFT. ELEVATED BILATERAL HEELS ON [address]ATTRESS IN PLACE. TOLERATING TUBE FEEDING, NO RESIDUAL NOTED UPON RESIDUAL CHECKS. TOLERATING VENT SETTINGS. PLAN BY RT TO DECREASE O2 TO TRACH SHEILD. WILL CTM. ASKS FOR SUCTIONING PRN. PLAN FOR HD CATH REMOVAL TOMORROW WITH IV TEAM. SPOKE WITH DAUGHTER BEAU TO MAKE AWARE OF PLAN. RESTRAINTS IN PLACE. SEE FLOWSHEET/ RESTRAINT DOCUMENTATION.
[2019-11-23 17:18] VITALS: BP 142/75
[2019-11-23 20:12] VITALS: BP 142/77
--- NOTE | 2019-11-23 21:59 | NUR ---
PT IS AWAKE WATCHING TV. HS MEDS GIVEN. VSS AFEBRILE. SATS WNL WITH TS 40% ON. UNLABORED. AFIB ON MONITOR. DENIED PAIN. DENIED SOA. SOFT WRIST RESTRAINTS REMAIN ON DUE TO PT PICKS AT TUBES ABD BINDER ETC. PT REPOSITIONED TO LEFT WITH FEET ELEVATED. NO S/S DISTRESS PRESENTLY. BED DOWN. CALL LIGHT IN REACH. WILL CONTINUE TO MONITOR FOR CHANGES.
[2019-11-23 23:47] VITALS: BP 154/81
[2019-11-24 04:46] VITALS: BP 153/93
[2019-11-24 06:06] LABS: ALBUMIN 2.4 g/dL (3.4-5.0); CALCIUM 8.4 mg/dL (8.5-10.1); CREATININE 3.1 mg/dL (0.7-1.3); PHOSPHORUS 4.1 mg/dL (2.5-4.9); POTASSIUM 4.6 mmol/L (3.5-5.1)
--- NOTE | 2019-11-24 08:04 | NUR ---
PT PROGRESSING TOWARDS D/C GOALS. HE TOLERATED THE TRACHSHEILD WITHOUT DIFFICULTY. LATER BACK ON VENTILATOR. VSS AFERILE. REPOSITIONED Q 2 HRS WITH HELP OF LONG WINDER TENDER AND COPPER FLOTATION OPERATOR. MOISTURE BARRIER APPLIED. PT UPSET HE COULD NOT HAVE FAN ON DUE TO COVID. HANDS WERE COLD AND IT WAS DIFFICULT TO GET SATUATION. RESIDUALS WNL.
[2019-11-24 08:46] VITALS: BP 146/76
--- NOTE | 2019-11-24 09:37 | NUR ---
ASSUMED PATIENT CARE THIS AM AT APPROXMIATELY 0700. PATIENT AWAKE AND ALERT, NO ACUTE RESPIRATORY DISTRESS NOTED. TOLERATING VENT SETTINGS. RT TO TRY HIM ON TRACH SHEILD AGAIN TODAY, O2 SAT AT 100% ON TRACH SHEILD. PATIENT TOLERATING TUBE FEEDINGS AT 50ML NO RESIDUAL NOTED. SPOKE WITH RD AND GOAL IS 55ML/HR WILL INCREASE PATIENT TO GOAL RATE THIS SHIFT. PATIENT ASKED REGARDING D/C RESTRAINTS, PATIENT ORIENTED AND TOLERATING SEROQUEL ORDERED. SPOKE WITH DR. GEE AND STATES TO CONTINUE TO WATCH PATIENT BECAUSE HE HAS PERIODS OF ANXIETY/ DOES NOT WANT HIM TO PULL OUT ANY TUBES. PATIENT TOLERATING TURNS. REFUSING SCDS AND PRAFO BOOTS AT THIS TIME. PLAN TO D/C HD CATH TODAY, PAGED IV TEAM TO ASSIST. AWAITING CALL BACK.
[2019-11-24 10:58] VITALS: BP 132/80
--- NOTE | 2019-11-24 13:56 | NUR ---
CONSULTS OBTAINED FOR PT/OT/ST TO EVAL PATIENT. PATIENT STATES THAT HE WANTS TO GET OUT OF BED AND EAT SOMETHING. EXPLAINED THAT THERAPY NEEDS TO EVALUATE HIM BEFORE ANY OF THAT CAN HAPPEN. PATIENT VERBALIZED UNDERSTANDING. TOLERATING T-TUBE ON VENT. TOLERATING TURNING. RESTRAINTS IN PLACE.
--- NOTE | 2019-11-24 14:59 | NUR ---
CHELSEA reviewed chart and spoke with nursing and attending physician. Pt is in Enhanced Isolation due to COVID-19. Repeat COVID test ordered today. Pt is afebrile. Pt will have HD catheter removed. Pt has trach and peg in place. Pt requires ventilator support. Pt has been on trach shield. Orders for PT/OT/ST placed today. CHELSEA provided update to [facility] liaison. CHELSEA spoke with Nam with [employer] and provided pt's SS# and Medicaid DCN# and policy #. Nam to see if pt has active coverage or will need to reapply. CHELSEA spoke with pt's dtr, Radha, via phone to provide update and discuss discharge plan. Radha is agreeable with plan. CHELSEA is following to assist as needed with discharge planning.
[2019-11-24 15:10] VITALS: BP 142/79
--- NOTE | 2019-11-24 19:00 | NUR ---
iv nurse came to floor to remove HD cath. pressure held x 15 minutes and no bleeding noted, no hematoma. rechecked groin for bleeding/ hematoma at 1900, none noted. report given to oncoming nurse.
[2019-11-24 19:46] VITALS: BP 139/81
--- NOTE | 2019-11-24 22:10 | NUR ---
PT RESTING IN BED, PT WATCHING TV. PT HAD MOVED UPPER EXTREMITIES TO PULL OF TRACH SHIELD. PT REPOSITIONED, RESTRAINTS REPOSITIONED. PT EDUCATED FAN NOT TO BE ON RE COVID. PEG TUBE INTACT, ABD BINDER INTACT. CERON AND FECAL MANAGEMENT INTACT. BED ALARM ON. LUNGS DIMINISHED. EDEMA BUE AND BLE. PT MOUTHS WORDS TO COMMUNICATE. MOUTH CARE PROVIDED.
[2019-11-25 04:46] VITALS: BP 157/87
--- NOTE | 2019-11-25 06:27 | NUR ---
PT RESTLESS AT TIMES THROUGHOUT THE NIGHT. LIMITED SLEEP, WATCHED TV. TTUBE REPLACED X 1, PT ASKING TO DRINK, SWABS PROVIDED.
[2019-11-25 07:45] VITALS: BP 152/81
[2019-11-25 11:06] VITALS: BP 141/78
--- NOTE | 2019-11-25 13:19 | NUR ---
CHELSEA reviewed chart and spoke with nursing and attending physician. Pt is in Enhanced Isolation due to COVID-19. Pt's repeat COVID test is negative. Pt is afebrile and on trach shield/ventilator support. Pt is on IV abx. CHELSEA provided update to [facility] liaison. CHELSEA discussed case with Nam with [employer] regarding pt's Medicaid application. CHELSEA is following to assist as needed with discharge planning.
--- NOTE | 2019-11-25 13:22 | NUR ---
PT IS CONFUSED, ORIENTED TO SELF AND SOMEWHAT OF SITUATION. 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 RN REORIENTED THE PT. FEEDING TUBE INFUSING WELL AT THIS TIME. PT WANTING PO FLUIDS/FOOD. SLT TO EVAL PT TOMORROW IF SPEAKING VALVE FOR TRACH CAN BE OBTAINED FROM THE RT. PT TESTED NEGATIVE FOR COVID, ANOTHER PCR TO BE SENT DOWN LATER TODAY. PASSIVE ROM WORKED WITH PT X2 AT THIS TIME. GRIMACING CAN BE NOTICED AT HYPEREXTENSION OF L/R SHOULDER, PT UNABLE TO HYPEREXTEND ELBOW JOINTS W/O PAIN. PT DID HAVE BETTER ROM AT SECOND PROM. NO COMPLAINTS, PT AGREES TO RECEIVING ANTI ANX MED FOR COMFORT AT A LATER TIME. FAMILY MEMBER CALLED, PROVIDED UPDATE. CONTINUING TO MONITOR AT THIS TIME. RESTRAINT STILL PLACED FOR PT SAFETY
--- NOTE | 2019-11-25 13:50 | NUR ---
RECEIVED ORDERS FOR SWALLOW EVALUATION BUT AWAITING RESULTS TO COVID-19 TESTING. THE PATIENT WILL NEED TO TEST NEGATIVE X2 BEFORE VIDEO SWALLOW CAN BE COMPLETED. SPOKE WITH LAMONTE DONALD AND RECOMMENDED RT PROVIDE THE PATIENT WITH SPEAKING VALVE PRIOR TO SWALLOW EVALUATION.
[2019-11-25 15:03] VITALS: BP 141/77
[2019-11-25 21:08] VITALS: BP 147/76
[2019-11-26] VITALS (7 sets, daily range): BP systolic 134–156; BP diastolic 61–89
--- NOTE | 2019-11-26 04:41 | NUR ---
PT MAKING SLOW PROGRESS TOWARDS GOALS. PT PLACED ON VENTILATOR, CPAP MODE WITH PRESSURE SUPPORT OF 6, PEEP 6 AND FI02 OF 35% OVERNIGHT BY RT. LUNGS CLEAR IN THE ANTERIOR, DIMINISHED THROUGHOUT THE POSTERIOR ARSHAD. SMALL AMOUT OF TANISH/RED TINGED SPUTUM OVERNIGHT.
--- NOTE | 2019-11-26 11:09 | NUR ---
CHELSEA reviewed chart and spoke with nursing, attending physician and gambreler helper. Pt is in Enhanced Isolation due to COVID-19. Pt continues vent weaning trials. Pt is afebrile and on IV abx. Pt's repeat COVID test is pending. CHELSEA faxed clinical updates to [facility] for review. Updated [facility] liaison. [facility] is only able to accept a limited number of Medicaid pending pts. Pt is on the waiting list. CHELSEA is following to assist as needed with discharge planning.
--- NOTE | 2019-11-26 18:58 | NUR ---
PT HAD A REPEAT POSITIVE COVID TEST RESULTED TODAY. CHARGE NURSE NOTIFIED INSTRUCTIONAL SUPPORT SPECIALIST NOTIFIED.
--- NOTE | 2019-11-26 19:14 | NUR ---
RN ASSUMED PATIENT CARE AT 0700AM, PT IS ON TRACH MASK O2 40% AT DAY SHIFT, PT CAN FOLLOW COMMANDS, BUT PT IS IMPULSIVE AT TIME AND HE TRYS TO PUT OUT HIS ALL TUBES, PT IS ON BILATERAL WRISTS SOFT RESTRAINTS, PT IS TOLERATIVE TUBE FEEDING AT 50ML/HR, PT'S VS AND O2SAT ARE STABLE, RN HAS CALLED TO REPORT PT'S AGITATION , NEW ORDER RECEIVED.
--- NOTE | 2019-11-26 20:30 | NUR ---
PT RESTING IN BED UPRIGHT POSITION, WATCHING SPORTS. PT HAS CALL LIGHT AND CELL PHONE WITHIN REACH. PT HAS SOFT WRIST RESTRAINTS TO MAINTAIN PEG TFEEDING AND CPAP ON TRACH SHIELD. BLUNTED AFFECT GOOD EYE CONTACT MOUTHING WORDS TO COMMUNICATE. REMAINS NPO MOUTH CARE PROVIDED. CERON AND FECAL MANAGEMENT INTACT. BED ALARM ON. PT COMPLIANT WITH CARES.
[2019-11-27 06:08] VITALS: BP 145/87
[2019-11-27 07:50] VITALS: BP 147/90
[2019-11-27 12:15] VITALS: BP 132/77
--- NOTE | 2019-11-27 13:10 | NUR ---
SW reviewed chart and spoke with nursing and attending physician. Pt is in Enhanced Isolation due to COVID-19. Pt's repeat test on 11/25 is positive. Pt is in restraints due to pulling at lines. Pt is afebrile and on IV abx. Pt with trach in place and on trach shield. Pt requires ventilator support as well. Pt [place] bed at [facility]. CHELSEA is following to assist as needed with discharge planning.
--- NOTE | 2019-11-27 14:13 | NUR ---
PT CAREASSUMED AT 0700, PT ALERT AND ORIENTED X4, AGITATED AND RESTLESS. COMPLETE BED CHANGE DONE. PT HAS SOFT WRIST RESTRAINTS ON DUE TO PULLING LINES. PT TRACH IN PLACE WITH TRACH SHIELD ON. PEG TUBE IN PLACE WITH BINDER ON, PLACEMENT CHECK AND TUBE FEEDING RUNNING PER ORDER. CERON AND FECAL MGT IN PLACE. PT HAS HIS CELL PHONE CLOSE BY. CALL LIGHT AND TABLE WITHIN REACH. PT REFUSE SCD'S. BED AT LOWEST LEVEL WITH ALARM ON.
[2019-11-27 16:46] VITALS: BP 123/69
[2019-11-27 20:10] VITALS: BP 120/62
--- NOTE | 2019-11-28 03:46 | NUR ---
Patient making slow progress towards outcome goals. Tolerated CPAP trials during they and vent at night with current settings. Sats 100%. Tolerating tube feedings. Fecal management and restraints remover per day shift. Was able to have liquid brown bowel movement per bedpan. Continues to be off restraints, uses call light appropriately for needs. Calm and cooperative with increased Seroquel dose. High fall risks, fall precautions in place. Denies pain. Rhythm and vital signs stable. Bradycardic 50's Cardizem held.
[2019-11-28 04:21] VITALS: BP 151/82
[2019-11-28 07:14] VITALS: BP 140/85
[2019-11-28 11:33] VITALS: BP 139/81
--- NOTE | 2019-11-28 12:26 | NUR ---
TF RECOMMENDATIONS *Recommend increasing Vital 1.5 to Goal Rate of 55 ml/hr as pt has been tolerating 50 ml/hr this week. *Goal Rate will provide 1980 kcals, 89 g protein.
--- NOTE | 2019-11-28 13:01 | NUR ---
CHELSEA reviewed chart and spoke with nursing and attending physician. Pt remains in Enhanced Isolation due to COVID-19. Pt is afebrile and on trach shield. Pt requires ventilator support as well. Pt is on IV abx. CHELSEA provided updated to [facility] liaison. Pt is [place]. No weekend discharge planned. CHELSEA is following to assist as needed with discharge planning.
--- NOTE | 2019-11-28 13:25 | NUR ---
THE PATIENT IS TOLERATING ORAL TRIALS OF PUREED SOLIDS AND THIN LIQUIDS WITH ST WITHOUT OVERT S/S OF ASPIRATION. PASSY SHERI SPEAKING VALVE IS USED WHILE FEEDING AND REMOVED FOLLOWING INTAKE. A VIDEO SWALLOW IS RECOMMENDED PRIOR TO INITIATING AN ORAL DIET TO R/O SILENT ASPIRATION SINCE HE WOULD BE CONSIDERED AT HIGHER RISK. ST WILL CONTINUE ORAL TRIALS AT BEDSIDE.
[2019-11-28 15:28] VITALS: BP 120/64
--- NOTE | 2019-11-28 18:42 | NUR ---
ASSUMED PATIENT CARE AT 0700. ALERT. CONFUSED SOMETIMES. TOLERATED ON TREACH SHIEL. ABLE TO TRUN BY SELF. VSS. PEOGRESSING TOWARDS POC GOALS.
[2019-11-28 19:47] VITALS: BP 150/80
--- NOTE | 2019-11-28 21:17 | NUR ---
PT ALERT AND ORIENTED X3. FOLLOWS COMMANDS. VSS. AFEBRILE HR SLIGHTLY LOW. 61. NOTIFIED NIDA SANTIZO GROOVER AND STRIPER OPERATOR.HELD 75 MG METOPROLOL TONIGHT. CARDIZEM GIVEN. WILL CONTINUE TO MONITOR HR CLOSELY FOR CHANGES. NYSTATIN APPLIED TO GROIN. MOISTURE BARRIER TO BUTTOCKS.ORAL CARE DONE. PT REPOSITIONED. NO C/O PAIN. NO S/S DISTRESS.
[2019-11-28 22:58] VITALS: BP 142/73
[2019-11-29 03:22] VITALS: BP 153/90
--- NOTE | 2019-11-29 07:16 | NUR ---
VSS AFEBRILE. NO CHANGES IN ASSESSMENT. INC STOOL X2. TOLERATED CPAP WELL. NO S/S DISTRESS.
[2019-11-29 07:23] VITALS: BP 127/77
[2019-11-29 11:23] VITALS: BP 134/69
[2019-11-29 15:40] VITALS: BP 132/82
--- NOTE | 2019-11-29 18:01 | NUR ---
ASSUMED PATIENT CARE AT 0700. ALERT. TOLERATED ON RA. ENCOURAGE PATIENT MOVE ALL EXTREMITYS ON BED. VSS. ABLT TO TURN SELF. PROGRESSING TOWARDS POC GOALS.
[2019-11-29 19:27] VITALS: BP 130/78
--- NOTE | 2019-11-29 21:18 | NUR ---
PT RESTING IN BED WATCHING BASKETBALL. PEG TUBE, ABD BINDER AND TFEEDING INTACT, CERON TO DD. PT DECLINES SCDS, FEET ELEVATED ON PILLOW. TRACH INTACT WITH HUMIDITY AIR. PT MOUTHS WORDS FOR NEEDS. INCONTINENT OF STOOL X 1. REMAINS NPO, MOUTH CARE PROVIDED. BED ALARM ON.
[2019-11-30 04:08] VITALS: BP 135/79
--- NOTE | 2019-11-30 06:17 | NUR ---
PT CONTINUES WITH FREQUENT LOOSE STOOLS, ON REGLAN AND TFEEDING.
[2019-11-30 07:13] VITALS: BP 136/80
[2019-11-30 07:48] VITALS: BP 134/84
[2019-11-30 11:24] VITALS: BP 153/86
--- NOTE | 2019-11-30 12:18 | NUR ---
VASCULAR ACCESS NURSE ROUNDING, RECOMMEND PIV PLACEMENT AND REMOVAL OF CENTRAL LINE IF NO LONGER NEEDED
--- NOTE | 2019-11-30 12:58 | NUR ---
PLACED PT ON SPEAKING VALVE AND MONITORING HIM. SATURATION IS STILL 100 WITH VALVE ON. WILL MONITOR AND PATIENT IS COMFORTABLE WITH NO SIGNS OF DISTRESS
[2019-11-30 16:13] VITALS: BP 131/79
[2019-11-30 19:41] VITALS: BP 133/72
[2019-12-01 03:40] VITALS: BP 132/76
[2019-12-01 08:30] VITALS: BP 129/79
[2019-12-01 10:30] LABS: ABSOLUTE NEUTROPHILS 6.5 thou/uL (1.4-8.2); BASOPHILS 0.4 % (0.0-2.0); EOSINOPHILS 3.9 % (0.0-3.0); HEMATOCRIT 28.8 % (42.0-52.0); HEMOGLOBIN 9.6 gm/dL (14.0-18.0); LYMPHOCYTES 14.7 % (24.0-44.0); MCH 28.6 pg (26.0-34.0); MCHC 33.4 g/dL (28.0-37.0); MCV 85.7 fL (80.0-100.0); MONOCYTES 7.1 % (1.0-8.0); POLYS 73.9 % (36.0-66.0); RBC 3.36 mil/uL (4.50-6.00); RDW 17.8 % (10.5-14.5); WBC 8.8 thou/uL (4.0-11.0)
[2019-12-01 10:39] LABS: ALBUMIN 2.5 g/dL (3.4-5.0); CALCIUM 8.5 mg/dL (8.5-10.1); CREATININE 1.5 mg/dL (0.7-1.3); MAGNESIUM 1.5 mg/dL (1.8-2.4); POTASSIUM 4.4 mmol/L (3.5-5.1); TOTAL BILIRUBIN 0.7 mg/dL (0.2-1.0); TOTAL PROTEIN 5.7 g/dL (6.4-8.2)
[2019-12-01 11:10] VITALS: BP 148/85
[2019-12-01 14:04] LABS: LARGE PLATELETS OCCASIONAL; PLATELET COUNT 162 thou/uL (150-400)
[2019-12-01 14:05] LABS: ANISOCYTOSIS 1+
[2019-12-01 15:59] VITALS: BP 134/87
--- NOTE | 2019-12-01 16:26 | NUR ---
ASSUMED CARE APPROX 0700. PT ALERT AND ORIENTED X2-3. ASSESSMENTS CHARTED AND VSS. AFEBRILE THIS SHIFT. TRACH MASK W/ HUMIDIFIED AIR IN PLACE @10LPM. GOT PT UP TO SIDE OF BED W/O ISSUES. PT DENIES ACUTE PAIN. PT DENIES CHEST PAIN. PT C/O COUGH AND THAT HASN'T BEEN ABLE TO SLEEP WELL. DR. SALINAS CONTACTED FOR GUAIFENASIN ORDER. OK PER DR. SALINAS. PT IS WANTING TO RESUME HIS DIET, BUT DR. SALINAS WELL THIS RN EDUCATED PT ON RISKS. PT'S DTR CAME TO GET PT'S WALLET FROM SECURITY. PT SLOWLY PROGRESSING TOWARDS PLAN OF CARE GOALS. WILL CONTINUE TO MONITOR.
[2019-12-01 20:27] VITALS: BP 144/88
[2019-12-02 05:59] VITALS: BP 114/73
[2019-12-02 06:59] VITALS: BP 125/76
[2019-12-02 11:01] VITALS: BP 142/92
--- NOTE | 2019-12-02 11:38 | NUR ---
SW reviewed chart and spoke with nursing and attending physician. Pt remains in Enhanced Isolation due to COVID-19. Pt is afebrile and on trach shield. Pt to be started on a diet today. Pt asking to go home and said he would leave AMA. Psych consulted today to evaluate pt's competency. [facility] has been following pt for admission. [place]. SW is following to assist as needed with discharge planning.
--- NOTE | 2019-12-02 12:39 | NUR ---
ASSUMED PATIENT CARE THIS AM AT APPROXIMATELY 0700. PATIENT IS AWAKE ALERT, ORIENTED X4. NO ACUTE DISTRESS NOTED. O2 SAT STALBE ON ROOM AIR. PATIENT SOEAKING VALVE IN PLACE AND ABLE TO VERBALIZE NEEDS THIS AM. SPOKE TO PATIENT REGARDING PLAN OF CARE FOR THE DAY AND PLAN FOR DISCHARGE. PATIENT STATES THAT HE WANTS TO GO HOME AND DOES NOT WANT TO GO TO A LTAC FACILITY. HE STATES HE HAS ALOT OF THINGS TO TAKE CARE OF AT HOME. PATIENT EVALUATED BY SPEECH THIS SHIFT AND REGULAR DIET ORDERED, PATIENT TOLERATED WELL AND TUBE FEEDINGS DISCONTINUED. PATIENT UP TO BEDSIDE CHAIR WITH PT/OT AND TOLERATING WELL. MAX ASSIST X2 TO BS COMMODE. STILL HAVING LOOSE STOOLS, PASSING GAS. MAIN COMPLAINT OF SHIFT IS NOT BEING ABLE TO SLEEP "FOR THE PAST 3 DAYS" ORDER FOR SLEEPING MED OBTAINED FOR PM
[2019-12-02 16:21] VITALS: BP 127/80
[2019-12-02 19:17] VITALS: BP 123/75
--- NOTE | 2019-12-02 20:30 | NUR ---
PT RESTING IN BED, GOOD EYE CONTACT FLAT AFFECT. PT CAN VERBALLY RESPOND WITH SPEAKER VALVE INTACT. PT WATCHING BASKETBALL, STATED HIS SON PLAYED. PT LUNGS WITH WHEEZES, CERON TO DD. PEG TUBE WITH BINDER INTACT. PT TOLERATING PO DIET. PT REQUESTS BED QUIÑONES FOR STOOL. BED ALARM ON. PT REPOSITIONS SELF IN BED.
--- NOTE | 2019-12-03 03:43 | NUR ---
PT AWAKENED AT 0300 WANTING TO ORDER BREAKFAST STATED HE THOUGHT IT WAS 0430. PT EDUCATED BREAKFAST CAN BE ORDERED AT 0630.
[2019-12-03 04:44] VITALS: BP 109/69
--- NOTE | 2019-12-03 05:00 | NUR ---
PT AWAKENED AND IS SITTING ON THE EDGE OF BED. PT ASKED FOR A RAZOR TO SHAVE HIS ARMS. PT STATED SINCE HE IS ON A BLOOD THINNER HE WILL NEED TO SHAVE WHEN HE CAN BE SUPERVISED.
--- NOTE | 2019-12-03 07:44 | EKG ---
[facility] [place] [address] ELECTROCARDIOGRAM REPORT Name: WOODROW CORRAL Room #: 352- ADM IN M.R.#: [id number] Admission: 10/14/19 Attend Phys: Frandy Mariscal MD Discharge: Date of : 54 Report #: [id number] THIS REPORT FOR: cc: SKEY - [facility] family physician/PCP SKYE - [facility] family physician/PCP Calin Wiseman MD [facility] THIS REPORT FOR: //name// [facility] Test Date: 2019-12-02 Test Time: 19:28:47 Pat Name: WOODROW CORRAL Department: Room: [facility] Gender: M Servicing Manager: DAYNA RIVERA : 1950 Requested By: Niya Maldonado Order Number: [id number] MD: Calin Wiseman Measurements Intervals [place] Rate: 60 P: 49 NV: 138 QRS: 27 QRSD: 87 T: 59 QT: 424 QTc: 424 Interpretive Statements Sinus rhythm Probable left atrial enlargement RSR' in V1 or V2, right VCD or RVH Borderline ST elevation, anterior leads Compared to ECG 10/14/2019 15:06:35 ST (T wave) deviation now present Atrial premature complex(es) no longer present Possible ischemia no longer present Electronically Signed On 12-03-2019 7:43:49 CDT by Calin Wiseman [email or web address] <ELECTRONICALLY SIGNED> By: Calin Wiseman MD, [facility] 12/03/19 0743 27 27 Calin Wiseman MD, [facility] /EPI
[2019-12-03 07:53] VITALS: BP 122/80
[2019-12-03 10:44] VITALS: BP 112/67
--- NOTE | 2019-12-03 12:00 | NUR ---
ASSUMED PATIENT CARE THIS AM AT APPROXIMATELY 0700. PATIENT AWAKE ALERT ORIENTED. NO ACUTE DISTRESS NOTED. PAGED DR. MERLOS VARIOUS TIMES RE: PATIENT LINES, NEED ORDERS TO DC CENTRAL LINE AND CERON IF POSSIBLE. PATIENT TOLERATING DIET WELL. NEED ORDERS TO DC PEG TUBE IF MD OK WITH IT. HE HAS A VERY GOOD APPETITE. MEDS AND ASSESSMENTS CHARTED. NO COMPLAINTS OF PAIN THIS SHIFT. TOLERATING HUMIDIFIED AIR THROUGH TRACH, NO SUPPLEMENTAL O2 NEEDED THIS SHIFT.
--- NOTE | 2019-12-03 13:15 | NUR ---
DR. MERLOS ROUNDING AT THIS TIME. ORDERS GIVEN TO D/C CERON AND CENTRAL LINE. STATES GTUBE WILL REMAIN IN PLACE FOR NOW. PAGED IV TEAM TO MAKE AWARE OF D.C ORDERS. AWAITING CALL BACK
--- NOTE | 2019-12-03 14:39 | NUR ---
CHELSEA reviewed chart and spoke with nursing and attending physician. Pt remains in Enhanced Isolation due to COVID-19. Pt's repeat test on 11/25 was positive. Pt is off the vent and has been afebrile. Pt is on a regular diet and not receiving tube feeding at this time. Pt stating he wants to go home. Kiko evaluated pt and states pt is not able to leave AMA at this time and needs assistance with decision making. CHELSEA discussed with [employer] to check on status of Medicaid application. Pt's application was denied due to not having accurate information when application was submitted. [employer] reapplied today on pt's behalf. CHELSEA placed call to pt's dtr, Radha, twice today. No answer or option to leave voice message. CHELSEA spoke with pt's son, Min, to discuss discharge plan: home v. post-acute placement. Per Min, family may be willing to take pt home, if they are able to meet his care needs. Unsure if pt will have peg tube removed prior to discharge and trach care needs. Family to discuss. CHELSEA is following to assist as needed with discharge planning.
--- NOTE | 2019-12-03 15:05 | NUR ---
CERON REMOVED AT APPROXIMATELY 1445 ENCOURAGED PO INTAKE. PATIENT DTV AFTER CERON REMOVED.
[2019-12-03 16:58] VITALS: BP 120/69
--- NOTE | 2019-12-03 17:53 | NUR ---
PATIENT RIGHT IJ CENTRAL LINE DISCONTINUED THIS SHIFT. CATHETER SHEATH INSPECTED UPON REMOVAL AND IS COMPLETE. NO BLEEDING NOTED TO SITE UPON REMOVAL, PRESSURE HELD X 5 MIN AND PATIENT TOLERATED WELL. VSS. PATIENT CERON CATHETER ALSO REMOVED THIS SHIFT AT 1430 AND PATIENT ABLE TO HAVE AN INCONTINENT VOID AT APPOXIMATELY 1700. NEW PIV SITE INSERTED BY IV TEAM NURSE TO RIGHT HAND. DRESSING C/D/I NO S/S OF INFECTION/ INFILTRATION NOTED. PATIENT WORKED WITH PT GETTING OUT OF BED THIS SHIFT, STATES HE IS DETERMINED TO LEAVE THE HOSPITAL AND GO HOME WITH HIS FAMILY BY SUNDAY. STATES HE WANTS TO SPEAK WITH FORMAL SERVICE WAITER REGARDING POSSIBLY REMOVING HIS TRACH PRIOR TO DISCHARGE. PATIENT REMAINS IN ENHANCED SPECIAL PRECAUTIONS THIS SHIFT. TOLERATING 100% OF MEALS.
[2019-12-03 20:14] VITALS: BP 132/87
[2019-12-04] VITALS (7 sets, daily range): BP systolic 101–134; BP diastolic 60–86
--- NOTE | 2019-12-04 04:15 | NUR ---
Up to commode at and had a bm. Voided per urinal then periods of being incontinent. PVR 37 ml. Trach capped , O2 sat up to 100% , no respiratory distress. He slept for few hours and verbalized that's the first time he was able to sleep through. Sitting up on the edge of the bed at this time ,shaving his arms and brushing teeth. Denies any pain , afebrile. Making progress towards care plan goals.
--- NOTE | 2019-12-04 14:36 | NUR ---
CHELSEA reviewed chart and spoke with nursing and attending physician. Pt remains in Enhanced Isolation due to COVID-19. Repeat COVID test ordered today and is pending. Pt is afebrile and not requiring O2. Pt's trach is capped. Pt has peg tube in place. Pt is on a regular diet. Pt was trying to leave AMA this morning. Attending physician and psych notified. Pt has 1:1 sitter. Pt is not medically stable for discharge and does not have the capacity to leave AMA. CHELSEA spoke with pt's dtr, Radha, via phone to provide update and discuss discharge plan. Pt's dtr states that she feels that family is not able to provide the care that pt needs at this time. CHELSEA discussed option for post-acute placement: [facility], who accept COVID positive pts and will consider Medicaid pending. Also discussed 5N (pt will need two negative COVID tests in order to be accepted to if he qualifies). land planner to fax referral to [facility] for review. CHELSEA notified [facility] post-acute liaison of new referral. CHELSEA discussed with cardiac rehabilitation program director who will review case once COVID results are available. CHELSEA is following to assist as needed with discharge planning.
--- NOTE | 2019-12-04 15:28 | NUR ---
FAXED REFERRAL TO [facility] SPOKE WITH LUDWIN IN ADM SHE RECEIVED REFERRAL AND WILL REVIEW. DP TO FOLLOW.
--- NOTE | 2019-12-04 18:16 | NUR ---
RN HAS ASSUMED PT'S CARE AT 0700AM, PT IS A&OX2 ( PERSON, PLACE), BUT PT DOES NOT KNOW HIMSELF STUATION ABOUT PT HAS TRACH AND PEG TUBE , PT STARTS EAT AND DRINK , PT'S TUBE FEEDING HAS STOP, RN HAS CALLED TO REPORT PT 'S IMPULSIVE AND PT WANT TO GO HOME WITHOUT DR ORDER, HAS TELLING PT, PT IS NOT SAFTY TO GO HOME WITH TRACH , SO DR MCDONOUGH SITTER PROVIDE , PT IS ON ROOM AIR , PT'S VS ARE STABLE, DR SOLORIO HAS TALKING TO PT AND FAMILY AT 1800PM,
--- NOTE | 2019-12-04 18:30 | NUR ---
1825 PT 1:1 PRECAUTIONS NEEDED PER LYNDSEY, HOWEVER IF PT GETS AGGRAVATED HE NEEDS TO BE MOVED TO ICU SO PT CAN BE IN VIEW OR RESUME 1:1. 1850 PT ON BEDSIDE COMMODE, CALL LIGHT IN REACH, THIS NURSE OUTSIDE ROOM TO GIVE PT PRIVACY. AND THIS NURSE HEARD THUD AND LOUD CRASH COMMOTION, NURSE ENTERS ROOM SEES PT ON FLOOR, A/0X2, REPORTS TO CAYLA (PT NURSE) THAT HE IS NOT HURT AND IS IN NO PAIN. J LUIS AND THIS NURSE HELP PT TO BED. PT IN BED AND BED ALARM SET.
--- NOTE | 2019-12-04 19:33 | NUR ---
WE FOUND PT ON FLOOR AT 1850PM, RN ASSESSED PT , NO PAIN , NO INJURE AT THIS TIME , PT IS A&OX2 ( PERSON AND PLACE), PT'S VS ARE STABLE, RN HAS NOTIED DR AND LICENSED CHEMICAL SPRAY TECHNICIAN, RN HAS REPORTED TO NEXT SHIFT TO KEEP ON THE PT, RN HAS EDUCATION PT TO CALL FOR HELP.
--- NOTE | 2019-12-04 20:05 | NUR ---
RN HAS CALLED PT'S SON RYNE ABOUT PT ON THE FLOOR , NO PAIN AND NO INJURE AT THIS TIME.
[2019-12-05 03:23] VITALS: BP 105/63
--- NOTE | 2019-12-05 04:28 | NUR ---
Pt. slept well till 314. He said he was watching the game but didn't finish it since he fell asleep. Denies any pain , afebrile. Bed alarm on. Used urinal , up to commode at times with periods of being incontinent. No respiratory distress , trach capped. Making progress towards care plan goals.
[2019-12-05 08:04] VITALS: BP 111/77
--- NOTE | 2019-12-05 12:17 | NUR ---
CHELSEA reviewed chart and spoke with nursing and attending physician. Pt remains in Enhanced Isolation due to COVID-19. Pt's repeat test on 12/03 is positive. CHELSEA updated [facility] post-acute liaison, who states they are able to accept pt from a clinical standpoint. CHELSEA faxed Medicaid application and repeat COVID darlene results/vital signs to [facility] for review. [facility] to contact pt's family to ensure that they have the information they need for pt's Medicaid application. Pt has trach and peg in place. Pt is not on O2 or requiring tube feeding. 1:1 sitter was discontinued. CHELSEA spoke with pt's dtr, Radha, via phone to provide update and discuss [facility]'s acceptance and repeat COVID test results. Radha is agreeable with plan for pt to d/c to [facility] when medically stable. No weekend discharge anticipated. CHELSEA is following to assist as needed with discharge planning.
--- NOTE | 2019-12-05 14:26 | NUR ---
PT WAS SEEN TODAY, PT IS VISIBLY UPSET THAT HE HAS TO STAY IN THE HOSPITAL, STATES FEELING TRAPPED. ORDERED PT IS INCAPABLE OF LEAVING AMA R/T MENTATION. PRIMARY FOCUS IS DISCHARGE DISPOSITION FOR THE PT. PER CHELSEA TAMAYO PT HAS BEEN ACCETED TO [facility], MEDICAID WAS IN PROCESS OF APPROVAL LAST TIME IT WAS DISCUSSED. PER PT IS ABLE TO DISCHARGE WITH THE TRACH TUBE IN PLACE, AND MAY VERY WELL NEED IT FOLLOWING DISCHARGE, AND CAN BE REMOVED ONCE NO LONGER INDICATED. PER , PT'S PEG TUBE IS TO STAY IN PLACE FOR 6-8WKS AFTER PLACEMENT. PEG TUBE WAS PLACED ON 11/03/19, PER STATEMENT, EARLIEST PT CAN HAVE TUBE REMOVED IS 12/15/19. RN HAS BEEN UPDATING PT THROUGHOUT THE SHIFT TO ENSURE PT IS UNDERSTANDING THE DIRECTION OF CARE CURRENTLY BEING PROVIDED. WILL PROVIDE ANOTHER TEACHING PRIOR SHIFT END
[2019-12-05 16:49] VITALS: BP 108/68
[2019-12-05 23:59] LABS: URINE BILIRUBIN NEGATIVE (Negative); URINE BLOOD 3+ (Negative); URINE CLARITY CLEAR; URINE COLOR YELLOW; URINE GLUCOSE-RANDOM* NEGATIVE (Negative); URINE KETONES NEGATIVE (Negative); URINE LEUKOCYTES NEGATIVE (Negative); URINE NITRITE NEGATIVE (Negative); URINE PROTEIN (DIPSTICK) TRACE (Negative); URINE SPECIFIC GRAVITY 1.015 (1.005-1.035); URINE UROBILINOGEN 0.2 E.U./dl (0.2-1.0)
[2019-12-06 00:08] LABS: BACTERIA 1-9 Few /HPF (None Seen); CASTS None Seen /LPF (None Seen); CRYSTALS None Seen /LPF (None Seen); MUCUS None Seen strn/LPF (None Seen); SQUAMOUS None Seen /LPF (0-3); URINE WBC 0-5 Rare /HPF (0-5)
--- NOTE | 2019-12-06 06:14 | NUR ---
PT A/0X4 AND HAS NO COMPLAINTS THIS EVENING. ONLY REQUEST WAS FOR ICE CHIPS AND SOME ORANGE JUICE. PT VOIDS VIA URINAL AT BEDSIDE. VSS.
[2019-12-06 08:03] VITALS: BP 95/57
[2019-12-06 11:17] VITALS: BP 111/60
--- NOTE | 2019-12-06 12:20 | NUR ---
PT IS COOPERATIVE THIS MORNING, RN PLANNED TODAY FOR COMFORT AND CLEANING WHILE PT AWAITS FOR DISCHARGE, PT AGREES WITH TODAY'S AGENDA. BED BATH WAS PROVIDED, NEW LINENS WERE PROVDIED FOR THE PT. PT VERBALIZED CONTENT WITH THE CARE THATS BEING PROVIDED. PT WAS ALSO TOLD BY OF POSSIBLE DISCHARGE TOMORROW, PT IS VERY EXCITED AT THIS TIME.
[2019-12-06 15:10] VITALS: BP 99/60
[2019-12-06 21:04] VITALS: BP 114/75
[2019-12-06 22:19] VITALS: BP 121/62
--- NOTE | 2019-12-07 01:55 | NUR ---
PT ALERT AND ORIENTED X4. VSS AFEBRILE. HR 60 ON MONITOR PRESENTLY. HS MEDS GIVEN AND PT HAS BEEN RESTING QUIETLY SINCE. BED DOWN ,CALL LIGHT IN REACH. BED ALARM ON. WILL CONTINUE TO MONITOR PT FOR CHANGES.
[2019-12-07 05:11] VITALS: BP 100/57
[2019-12-07 07:35] VITALS: BP 115/68
[2019-12-07 12:03] VITALS: BP 127/80
[2019-12-07] MEDS ORDERED: NYSTATIN-TRIAMC15 GM TOP (12:06)
[2019-12-07] MEDS ORDERED: AKWA TEARS OIN3.5 GM OPHTHALMIC (12:06)
[2019-12-07] MEDS ORDERED: PACERONE 200 M200 M1 PO (12:06)
[2019-12-07] MEDS ORDERED: VISTARIL 25 MG25 M1 PO (12:06)
[2019-12-07] MEDS ORDERED: ELIQUIS5 MG PO (12:06)
[2019-12-07] MEDS ORDERED: SEROQUEL 100 M100 M1 PO (12:06)
[2019-12-07] MEDS ORDERED: PEPCID20 MG PO (12:06)
[2019-12-07] MEDS ORDERED: IPRAT-ALBUT 0.5-3 ML INH (12:06)
[2019-12-07] MEDS ORDERED: PERIDEX 0.12%473 M1 MUCOUS MEM (12:06)
[2019-12-07] MEDS ORDERED: MIRALAX17 GM PO (12:06)
[2019-12-07] MEDS ORDERED: LOPRESSOR50 PO (12:06)
[2019-12-07] MEDS ORDERED: ROBITUSSIN100 MG/53 PO (12:06)
--- NOTE | 2019-12-07 12:53 | NUR ---
PT IS READY FOR DISCHARGE TODAY TO [facility] SPOKE WITH [facility] SHOVEL OPERATOR RN THEY ARE NOT ABLE TO ADMITY PT TODAY WAS TOLD NO WEEKEND DC AND THEY ARE STILL NEEDING TO SPEAK WITH FAMILY REGARDING MEDICAID APPLICATION. NOTIFIED PT'S NURSE HE WILL NOTIFY PHYSICIAN. DP TO FOLLOW.
--- NOTE | 2019-12-07 15:13 | NUR ---
NO ACUTE CHANGES FOR THE PT TODAY, IV FLUIDS HAVE DC'D, PT IS TOLERATING PO OKAY, NO SUCTION OF THE TRACHEA REQUESTED TO THIS POINT. PT REQUESTED HALDOL FOR COMFORT R/T ANXIETY. PT WAS TOLD BY RN THAT DISCHARGE WILL LIKELY HAPPEN ON SUNDAY, [facility] HAS ACCEPTED THE PT BUT DC IS CONTINGENT UPON MEDICAID APPLICATION WET MILLING WHEEL OPERATOR; NOT ACCEPTANCE. WILL FOLLOW UP WITH RONI SALMON DURING PRIMETIME ON SUNDAY AND WILL UPDATE THE PT ON CARE/DISCHARGE PLANNING.
[2019-12-07 16:16] VITALS: BP 101/53
[2019-12-07 19:54] VITALS: BP 110/71
[2019-12-08 04:25] VITALS: BP 100/58
--- NOTE | 2019-12-08 06:15 | NUR ---
VSS, HR IN HIGH 50'S AND UP. PT REQUESTED A BED CHANGE AT 0300. NO OTHER COMPLAINTS OR ISSUES.
[2019-12-08 07:16] VITALS: BP 98/60
[2019-12-08] MEDS ORDERED: LOPRESSOR50 PO (10:02)
--- NOTE | 2019-12-08 10:10 | NUR ---
CURRENTLY WORKING WITH SW TO FIND OUT THE STATUS OF MEDICAID APPLICATION WHETHER IT WAS RECEIVED OR NOT, SPOKE WITH PATIENT REGARDING DISCHARGE AT THIS TIME. BP LOW THIS MORNING METOPROLOL HELD, AMIODARONE STILL PROVIDED PER HX OF AFIB, CONTINUING TO MONITOR. PT REQUESTING HALDOL AT THIS TIME FOR ANXIETY
[2019-12-08 11:28] VITALS: BP 112/67
[2019-12-08 15:43] VITALS: BP 116/71
--- NOTE | 2019-12-08 15:48 | NUR ---
DISCHARGE NOTE: CHELSEA reviewed chart and spoke with nursing and attending physician. Pt is medically stable for discharge to [facility] today. Pt to have trach and peg remain in place. Trach is capped and peg tube is not being used. Pt is eating a regular diet. [facility] post-acute liaison spoke with pt via phone to obtain info regarding his assets. [facility] corporate office approved admission. CHELSEA faxed clinical/therapy updates and discharge orders/summary to [facility] for review. Wheelchair van transportation scheduled for [id number] per [facility] [employer]. Pt is aware and agreeable with plan. CHELSEA spoke with pt's dtr, Radha, via phone to provide update and discuss discharge plan. Radha provided with contact info for [facility]. Chart copy requested. Nursing provided with number to call report. No additional SW needs identified at this time, but is available to assist should needs arise.
== END 2019-12-08 16:51 | DRG 3 ==
LOC: ER 12:30 → EROBS 15:48 → 3W 18:07 → ICU 10-17 12:10 → 3W 11-17 21:00
PROVIDERS: Hospitalist; Internal Medicine; Internal Medicine Nephrology; Internal Medicine Pulmonary Disease; Nurse Practitioner Family; Pediatrics; Physician Assistant; Specialist; ADMIT Hospitalist; ATTEND Hospitalist
PROC: 06HY33Z Insertion of Infusion Device into Lower Vein, Percutaneous Approach (ICD-10-PCS; principal; 2019-10-18)
PROC: 0BH17EZ Insertion of Endotracheal Airway into Trachea, Via Natural or Artificial Opening (ICD-10-PCS; principal; 2019-10-18)
PROC: 5A1955Z Respiratory Ventilation, Greater than 96 Consecutive Hours (ICD-10-PCS; principal; 2019-10-18)
PROC: 02HV33Z Insertion of Infusion Device into Superior Vena Cava, Percutaneous Approach (ICD-10-PCS; 2019-10-20)
PROC: 5A09357 Assistance with Respiratory Ventilation, Less than 24 Consecutive Hours, Continuous Positive Airway Pressure (ICD-10-PCS; 2019-10-24)
PROC: 0DH68UZ Insertion of Feeding Device into Stomach, Via Natural or Artificial Opening Endoscopic (ICD-10-PCS; 2019-11-03)
PROC: 0B110F4 Bypass Trachea to Cutaneous with Tracheostomy Device, Open Approach (ICD-10-PCS; 2019-11-03)
PROC: 5A1D70Z Performance of Urinary Filtration, Intermittent, Less than 6 Hours Per Day (ICD-10-PCS; 2019-11-09)
PROC: 30233N1 Transfusion of Nonautologous Red Blood Cells into Peripheral Vein, Percutaneous Approach (ICD-10-PCS; 2019-11-10)
PROC: 06HY33Z Insertion of Infusion Device into Lower Vein, Percutaneous Approach (ICD-10-PCS; 2019-11-10)
PROC: 5A1D70Z Performance of Urinary Filtration, Intermittent, Less than 6 Hours Per Day (ICD-10-PCS; 2019-11-10)
PROC: 5A1D70Z Performance of Urinary Filtration, Intermittent, Less than 6 Hours Per Day (ICD-10-PCS; 2019-11-12)
PROC: 0D967ZZ Drainage of Stomach, Via Natural or Artificial Opening (ICD-10-PCS; 2019-11-13)
PROC: 5A1D70Z Performance of Urinary Filtration, Intermittent, Less than 6 Hours Per Day (ICD-10-PCS; 2019-11-15)
PROC: 0D20XUZ Change Feeding Device in Upper Intestinal Tract, External Approach (ICD-10-PCS; 2019-11-21)
PROC: 5A09357 Assistance with Respiratory Ventilation, Less than 24 Consecutive Hours, Continuous Positive Airway Pressure (ICD-10-PCS; 2019-11-25)
PROC: 5A09357 Assistance with Respiratory Ventilation, Less than 24 Consecutive Hours, Continuous Positive Airway Pressure (ICD-10-PCS; 2019-11-26)
PROC: 5A1935Z Respiratory Ventilation, Less than 24 Consecutive Hours (ICD-10-PCS; 2019-11-27)
PROC: 5A09357 Assistance with Respiratory Ventilation, Less than 24 Consecutive Hours, Continuous Positive Airway Pressure (ICD-10-PCS; 2019-11-27)
PROC: 5A1935Z Respiratory Ventilation, Less than 24 Consecutive Hours (ICD-10-PCS; 2019-11-28)
PROC: 5A09357 Assistance with Respiratory Ventilation, Less than 24 Consecutive Hours, Continuous Positive Airway Pressure (ICD-10-PCS; 2019-11-28)
PROC: 5A1935Z Respiratory Ventilation, Less than 24 Consecutive Hours (ICD-10-PCS; 2019-11-29)
PROC: 5A09357 Assistance with Respiratory Ventilation, Less than 24 Consecutive Hours, Continuous Positive Airway Pressure (ICD-10-PCS; 2019-11-29)
PROC: 5A09357 Assistance with Respiratory Ventilation, Less than 24 Consecutive Hours, Continuous Positive Airway Pressure (ICD-10-PCS; 2019-11-30)
PROC: 5A09357 Assistance with Respiratory Ventilation, Less than 24 Consecutive Hours, Continuous Positive Airway Pressure (ICD-10-PCS; 2019-12-01)
PROC: 5A09357 Assistance with Respiratory Ventilation, Less than 24 Consecutive Hours, Continuous Positive Airway Pressure (ICD-10-PCS; 2019-12-02)
PROC: 5A09357 Assistance with Respiratory Ventilation, Less than 24 Consecutive Hours, Continuous Positive Airway Pressure (ICD-10-PCS; 2019-12-03)
DX: A41.89 Other specified sepsis (principal); U07.1 COVID-19; J12.89 Other viral pneumonia; J96.01 Acute respiratory failure with hypoxia; G92 Toxic encephalopathy; E43 Unspecified severe protein-calorie malnutrition; N17.0 Acute kidney failure with tubular necrosis; J15.1 Pneumonia due to Pseudomonas; R53.2 Functional quadriplegia; R65.21 Severe sepsis with septic shock; B37.49 Other urogenital candidiasis; K56.7 Ileus, unspecified; B37.89 Other sites of candidiasis; D64.9 Anemia, unspecified; I48.91 Unspecified atrial fibrillation; I10 Essential (primary) hypertension; E87.6 Hypokalemia; Z88.0 Allergy status to penicillin; Z68.25 Body mass index [BMI] 25.0-25.9, adult; Z85.46 Personal history of malignant neoplasm of prostate
CPT/HCPCS: 10078; 10080; 10203; 10204; 10879; 27000; 32100; 50101; 50386; 50403; 50550; 56525; 62110; 62900; 85076

== ENCOUNTER → 2019-12-25 | Outpatient (CLI) | payer OTHER ==
[~2019-12-25] MED LIST: AKWA TEARS OIN3.5 GM OPHTHALMIC; ELIQUIS5 MG PO; IPRAT-ALBUT 0.5-3 ML INH; LOPRESSOR50 PO; MIRALAX17 GM PO; NYSTATIN-TRIAMC15 GM TOP; PACERONE 200 M200 M1 PO; PEPCID20 MG PO; PERIDEX 0.12%473 M1 MUCOUS MEM; ROBITUSSIN100 MG/53 PO; SEROQUEL 100 M100 M1 PO; VISTARIL 25 MG25 M1 PO
== END ==
LOC: LAB 12-23 10:53
PROVIDERS: ATTEND Pediatrics
DX: Z20.828 Contact with and (suspected) exposure to other viral communicable diseases (principal)

== ENCOUNTER → 2020-01-14 | Outpatient (CLI) | payer OTHER ==
[~2020-01-14] MED LIST changes: +CRESTOR10 MG PO; +TOPROL XL25 MG PO; +XARELTO20 MG PO
== END ==
LOC: SJCVCIMAG 08:25
PROVIDERS: ATTEND Nurse Practitioner Adult Health
DX: I08.1 Rheumatic disorders of both mitral and tricuspid valves (principal); R94.31 Abnormal electrocardiogram [ECG] [EKG]; I48.91 Unspecified atrial fibrillation; D68.69 Other thrombophilia; E78.00 Pure hypercholesterolemia, unspecified; Z79.899 Other long term (current) drug therapy

== ENCOUNTER → 2020-01-19 | Outpatient (CLI) | payer OTHER ==
[~2020-01-19] MED LIST changes: -CRESTOR10 MG PO; -TOPROL XL25 MG PO; -XARELTO20 MG PO
== END ==
LOC: LAB 13:47
PROVIDERS: ATTEND Internal Medicine Cardiovascular Disease
DX: Z01.812 Encounter for preprocedural laboratory examination (principal); Z20.828 Contact with and (suspected) exposure to other viral communicable diseases

== ENCOUNTER → 2020-01-23 | Outpatient (CLI) | payer OTHER ==
[~2020-01-23] VITALS: Ht 175.3 cm; Wt 77.1 kg
[~2020-01-23] MED LIST changes: +CRESTOR10 MG PO; +TOPROL XL25 MG PO; +XARELTO20 MG PO
[2020-01-23 07:11] VITALS: BP 163/99
--- NOTE | 2020-01-23 09:19 | TEE ---
[facility] [address] [place] [address] TRANSESOPHAGEAL ECHOCARDIOGRAM Name: WOODROW CORRAL Room #: REG [facility]#: [id number] Admission: 01/23/20 Attend Phys: Calin Wiseman MD, Discharge: Date of : 54 Report #: [id number] THIS REPORT FOR: cc: SKYE - No family physician/PCP FAM - No family physician/PCP Calin Wiseman MD [facility] ~ APPROVED REPORT Study performed: 01/23/2020 07:48:43 EXAM: Transesophageal Echocardiogram Patient Location: Out-Patient Status: routine BSA: 1.93 HR: 70 bpm BP: 161/98 mmHg Rhythm: Atrial Flutter Other Information Study Quality: Good Indications Aflutter/Cardioversion. Hx: COVID-19 Procedure After obtaining informed consent, patient underwent transesophageal echo in the [employer]. Type of Sedation : Conscious Sedation Sedation was administered by LAMONTE Aden. Sedation was achieved intravenously with: Versed (6.5) Fentanyl (75) Transesophageal probe was inserted and advanced into esophagus without difficulty by MD Bowen. Echo enhancement indication: R/O Septal defect. Echo enhancement agent administered: Agitated Saline The PORSCHE was performed without complications. Synchronized Cardioversion attempted: Successful Synchronized Cardioversion acheived with 50 Joules after 1 attempt(s). Rhythm following Synchronized Cardioversion: Normal Sinus Rhythm Throughout the procedure, the blood pressure, pulse oximetry, cardiac rhythm, and rate were monitored. The patient tolerated the procedure without adverse effects. Recovery [facility] [address] [place] [address] TRANSESOPHAGEAL ECHOCARDIOGRAM Name: WOODROW CORRAL Room #: REG CL [facility]#: [id number] Admission: 01/23/20 Attend Phys: Calin Wiseman, Discharge: Date of : 54 Report #: [id number] from conscious sedation was uneventful and vital signs were stable. Left Ventricle The left ventricle is normal size. Mild concentric left ventricular hypertrophy. Left ventricular systolic function is low normal. LVEF is 50%. Right Ventricle The right ventricle is normal size. The right ventricular systolic function is normal. Atria Biatrial enlargement. No thrombus is visualized in the left atrium or appendage. No shunting noted with contrast bubble injection. Aortic Valve The aortic valve is normal in structure. Trace aortic regurgitation. There is no aortic valvular stenosis. Mitral Valve The mitral valve is normal in structure. Trace mitral regurgitation. No evidence of mitral valve stenosis. Tricuspid Valve The tricuspid valve is normal in structure. Trace tricuspid regurgitation. Pulmonic Valve The pulmonary valve is normal in structure. Trace pulmonic regurgitation. Great Vessels The aortic root is normal in size. The ascending aorta is normal in size. Pericardium There is no pericardial effusion. <Conclusion> Consent was obtained Atrial flutter on presentation After appropriate sedation esophageal probe was advanced without difficulty Normal left ventricle size, mild concentric hypertrophy Ejection fraction of 50% [facility] [address] [place] [address] TRANSESOPHAGEAL ECHOCARDIOGRAM Name: WOODROW CORRAL Room #: REG [facility].#: [id number] Admission: 01/23/20 Attend Phys: Calin Wiseman, Discharge: Date of : 54 Report #: [id number] Mild biatrial enlargement Left atrial appendage, moderate size, no evidence of mass or clot detected Tricuspid aortic valve, no valvular dysfunction Normal mitral valve structure and function Trace of tricuspid valve insufficiency No evidence of atrial or ventricular septal defect by color flow/Doppler study No evidence of calcification in the aorta No pericardial effusion Patient was successfully cardioverted to sinus rhythm with 50 J, biphasic mode Patient tolerated procedure well <ELECTRONICALLY SIGNED> By: Calin Wiseman MD, FACC 01/23/20918 8 8 Calin Wiseman MD, FACC /INF
--- NOTE | 2020-01-23 12:49 | EKG ---
[facility] [place] [place] [address] ELECTROCARDIOGRAM REPORT Name: WOODROW CORRAL [id number]: 01/[facility]/20 Attend Phys: Calin Wiseman MD, Discharge: Date of : 54 Report #: [id number] THIS REPORT FOR: cc: SKYE - [place] family physician/PCP SKYE - [place] family physician/PCP Calin Wiseman MD [facility] THIS REPORT FOR: //name// [facility] Test Date: 2020-01-23 Test Time: 09:31:46 Pat Name: WOODROW CORRAL Department: Room: Gender: Clinical Data Coordinator: [facility] : 1950 Requested By: Calin Wiseman Order Number: [id number] MD: Calin Wiseman Measurements Intervals Barnhart Rate: 62 P: 53 CO: 145 QRS: 11 QRSD: 125 T: 44 QT: 442 QTc: 449 Interpretive Statements Sinus rhythm Probable left atrial enlargement IVCD, consider atypical RBBB Nonspecific T abnormalities, lateral leads Compared to ECG 12/02/2019 19:28:47 T-wave abnormality now present Right ventricular hypertrophy no longer present ST (T wave) deviation no longer present Electronically Signed On 01-23-2020 12:48:52 CDT by Calin Wiseman [email or web address] <ELECTRONICALLY SIGNED> By: Calin Wiseman MD, FACC 01/23/20 1248 0 0 Calin Wiseman MD, JHONNY /EPI
== END | disposition home or self-care (01) ==
LOC: CATH 06:21
PROVIDERS: ATTEND Internal Medicine
DX: I48.92 Unspecified atrial flutter (principal); I08.3 Combined rheumatic disorders of mitral, aortic and tricuspid valves; I10 Essential (primary) hypertension; Z85.46 Personal history of malignant neoplasm of prostate; Z98.890 Other specified postprocedural states; Z79.899 Other long term (current) drug therapy; Z88.0 Allergy status to penicillin

== ENCOUNTER → 2020-01-29 | Outpatient (CLI) | payer OTHER | LOC: SJCVC 14:33 | PROVIDERS: ATTEND Internal Medicine | DX: R00.1 Bradycardia, unspecified (principal); I11.9 Hypertensive heart disease without heart failure; R94.31 Abnormal electrocardiogram [ECG] [EKG]; I48.91 Unspecified atrial fibrillation; E78.5 Hyperlipidemia, unspecified; D68.59 Other primary thrombophilia ==

== ENCOUNTER → 2020-04-13 | Outpatient (CLI) | payer OTHER | LOC: SJCVCIMAG 09:57 | PROVIDERS: ATTEND Internal Medicine Cardiovascular Disease | DX: I48.91 Unspecified atrial fibrillation (principal); I10 Essential (primary) hypertension; E78.5 Hyperlipidemia, unspecified ==

== ENCOUNTER 2020-05-15 05:47 | Emergency (ER) | payer OTHER ==
[~2020-05-15] VITALS: Ht 175.3 cm; Wt 83.9 kg
[2020-05-15 05:51] VITALS: BP 187/88
[2020-05-15] MEDS ORDERED: VALTREX1000 MG PO (06:30)
[2020-05-15] MEDS ORDERED: SALONPAS PATCH1 EAC1 TRANSDERM (06:30)
[2020-05-15] MEDS ORDERED: HYDROCODON-ACE1 EA14 PO (06:30)
== END 2020-05-15 06:54 | disposition home or self-care (01) ==
LOC: ER 05:47
DX: B02.9 Zoster without complications (principal); I48.91 Unspecified atrial fibrillation; Z79.899 Other long term (current) drug therapy; Z88.0 Allergy status to penicillin

== ENCOUNTER → 2020-12-23 | Outpatient (CLI) | payer OTHER ==
[~2020-12-23] MED LIST changes: +HYDROCODON-ACE1 EA14 PO; +SALONPAS PATCH1 EAC1 TRANSDERM; +VALTREX1000 MG PO
== END ==
LOC: SJCVC 14:09
PROVIDERS: ATTEND Internal Medicine Cardiovascular Disease
DX: R94.31 Abnormal electrocardiogram [ECG] [EKG] (principal); I48.0 Paroxysmal atrial fibrillation; E78.5 Hyperlipidemia, unspecified; E78.00 Pure hypercholesterolemia, unspecified; I10 Essential (primary) hypertension; N20.0 Calculus of kidney; N19 Unspecified kidney failure; J96.90 Respiratory failure, unspecified, unspecified whether with hypoxia or hypercapnia; B02.9 Zoster without complications; Z79.899 Other long term (current) drug therapy; Z86.16 Personal history of COVID-19; Z85.46 Personal history of malignant neoplasm of prostate; Z88.0 Allergy status to penicillin; Z88.8 Allergy status to other drugs, medicaments and biological substances